=== PATIENT | male | born 1940 | race Caucasian/White ===

== ENCOUNTER 2018-08-30 14:37 | Inpatient (IN) | payer OTHER, BC ==
[2018-08-30] MEDS: SODIUM CHLORIDE 1,000 ML IV SCH (14:54)
--- NOTE | 2018-08-30 15:09 | PDOC ---
Attending Attestation - HPI HPI: 08/30/18 15:19 The patient is a 77 year old male, with a significant PMH of hypertension, hyperlipidemia, diabetes mellitus, who presents to the emergency department with aphasia, right sided weakness and right sided facial droop beginning 1 hour ago (approx 1:30 pm). As per EMS, the patient was last seen normal one hour ago while eating lunch and shortly after began behaving less responsive with notable right sided weakness/ facial droop. Patient seen immediately upon arrival by Dr Guthrie and ED staff. Allergies: NKDA Documentation prepared by Juan Luis Manning, acting as medical clerical assistant for Kamron Guthrie MD. <Juan Luis Manning - Last Filed: 08/30/18 15:19> - Resident Resident Name: Zachariah Headley - ED Attending Attestation I have performed the following: I have examined & evaluated the patient, The case was reviewed & discussed with the resident, I agree w/resident's findings & plan, Exceptions are as noted - Physicial Exam PE: 09/01/18 00:40 Vitals: Triage Vital signs reviewed General Appearance: no acute distress, well nourished well developed, Head: Atraumatic, Eyes: Pupils equal reactive round, extraocular movement intact Cardiac: Regular rate and rhythym, no murmurs, no rubs, no gallops, Lungs: Clear to auscultation bilateral, good air movement bilaterally, Abdomen: Soft, non distended, normal bowel sounds, non tender to palpation Extremities: Full range of motion to all extremities, no cyanosis, clubbing, or edema Skin: Warm and dry, no rashes or lesions, no rash, no petechiae Neuro:Cranial Nerves 2-12 grossly intact, Strength intact to all extremities, Sensation intact to all extremities Psych: normal mood, normal affect - Critical Care Time Total Critical Care Time: 36 Critical Care Statement: The care of this patient involved high complexity decision making to prevent further life threatening deterioration of the patient 's condition and/or to evaluate & treat vital organ system(s) failure or risk of failure. - Medical Decision Making 08/30/18 15:31 Patient brought into the emergency department with acute onset right-sided hemiparesis and aphasia and right-sided facial droop upon EMS arrival patient unable to lift his right arm right leg with right-sided facial droop with persistent aphasia fingerstick done in the field was [address] for stat CT had and CTA Upon return to room patient now with no facial droop, able to lift both arms and both legs still with a receptive and expressive aphasia still with difficulty following commands At this time NIHSS 2/3 difficult to quantify 2/2 inability to understand commands Case discussed twice with Dr. Clark neurology not a candidate for TPA or transfer at this time Recommends full dose aspirin MRI carotid Dopplers will consult Reevaluation patient still with difficulty with hypertension and speaking but moving all extremities We'll admit to medicine on telemetry for further management and neurology consultation. <Kamron Guthrie - Last Filed: 09/01/18 00:42> NIH Stroke Scale - Initial Evaluation Level of consciousness: Alert Ask patient to open & close eyes; make fist and let go: Obeys both correctly Best gaze (horizontal eye movement): Normal Visual field testing: No visual field loss Facial paresis (Show teeth/raise eyebrows/close eyes tight): Normal symmetrical movement Motor Function: Left Arm: Normal Motor Function: Right Arm: Normal (extends arm 90 (or 45) degrees for 10 seconds without drift Motor Function: Left Leg: Normal (extends leg 30 degrees for 5 seconds without drift) Motor Function: Right Leg: Normal (extends leg 30 degrees for 5 seconds without drift) Limb Ataxia: No ataxia Sensory(Use pinprick test arms,legs,trunk,face/side to side): Normal Best language (Describe picture, name items, read sentences): Mild to moderate aphasia Dysarthria (read several words): Mild to moderate slurring of words Extinction and Inattention: No abnormality <Kamron Guthrie - Last Filed: 09/01/18 00:42>
[2018-08-30 15:13] LABS: BASO % 0.5 % (0-2.0); EOS % 2.4 % (0-4.5); HEMATOCRIT 43.9 % (35.4-49); HEMOGLOBIN 15.5 GM/dL (11.7-16.9); LYMPH % 28.7 % (8-40); MCH 35.1 pg (25.7-33.7); MCHC 35.3 g/dl (32.0-35.9); MEAN CELL VOLUME 99.5 fl (80-96); MEAN PLT VOLUME 7.9 fl (7.5-11.1); MONO % 13.2 % (3.8-10.2); NEUT % 55.2 % (42.8-82.8); PLATELET COUNT 183 K/MM3 (134-434); RBC 4.41 M/mm3 (4.00-5.60); RDW 13.5 % (11.9-15.9); WHITE BLOOD COUNT 7.1 K/mm3 (4.0-10.0)
--- NOTE | 2018-08-30 15:20 | PDOC ---
History of Present Illness - General Chief Complaint: CVA/TIA Stated Complaint: CVA/TIA Time Seen by Provider: 08/30/18 14:38 History Source: Patient, Family, Old Records Exam Limitations: No Limitations - History of Present Illness Initial Comments: HPI: 77 y/o male BIBEMS from home with altered mental status with right sided facial drooping, right arm weakness, and right leg weakness. Symptoms started spontaneously while pt was eating lunch with approx. one hour prior to arrival. Speech is nonsensical words (per family). Pt has no prior history of CVA/TIA. Denies observing seizure like activity. Pt was in normal state of health prior to this afternoon. Pt is Malaysian speaking only. Family members at bedside provided interpretation. PCP: Dr. Richardson Past History - Past Medical History Allergies/Adverse Reactions: Allergies Allergy/AdvReac Type Severity Reaction Status Date / Time No Known Drug Allergies Allergy Verified 08/30/18 14:39 Home Medications: Ambulatory Orders Atorvastatin Calcium [Lipitor] 20 mg PO HS 08/13/12 Febuxostat [Uloric -] 40 mg PO DAILY 08/13/12 Metoprolol Tartrate [Lopressor -] 50 mg PO DAILY 08/13/12 Ramipril [Altace] 2.5 mg PO DAILY 08/13/12 Triamterene/Hydrochlorothiazid [Triamterene-Hctz 37.5-25 mg Tb] 1 each PO DAILY 08/13/12 Glipizide [Glipizide ER] 5 mg PO DAILY 08/30/18 Metformin HCl [Glucophage] 500 mg PO BID 08/30/18 Anemia: No Asthma: No Cardiac Disorders: Yes (NE x2, stents) COPD: No Diabetes: Yes HTN: Yes Hypercholesterolemia: Yes Kidney Stones: Yes - Surgical History Abdominal Surgery: No Appendectomy: Yes Cardiac Surgery: (stents) Orthopedic Surgery: No - Immunization History Td Vaccination: No (never has had one/doesnt want one) - Suicide/Smoking/Psychosocial Hx Smoking Status: No Smoking History: Never smoked Have you smoked in the past 12 months: No Number of Cigarettes Smoked Daily: 0 Information on smoking cessation initiated: No Hx Alcohol Use: No Drug/Substance Use Hx: No Substance Use Type: Alcohol Review of Systems - Review of Systems Able to Perform ROS?: No (Pt condition) *Physical Exam - Vital Signs Last Vital Signs Temp Pulse Resp BP Pulse Ox 97.3 F L 58 L 18 137/72 100 08/30/18 15:00 08/30/18 15:00 08/30/18 15:00 08/30/18 15:00 08/30/18 15:00 - Physical Exam Comments: Constitutional: Elderly adult male. Found semi-fowlers on hospital bed. Alert but completely disoriented. Unable to answer questions and would only intermittently follow commands. Speech was non-labored but mildly slurred. Head: Normocephalic. No obvious external signs of trauma. Eyes: Pupils 3mm and PERRL bilaterally. EOMI. Sclerae white. Conjunctiva moist and not injected. Ears: Hearing grossly intact. Nose: No nasal discharge. Throat: Oral cavity and pharynx normal. No inflammation, swelling, exudate, or lesions. Neck: Supple, trachea is midline. Cardiovascular / Chest: Regular rate and regular rhythm. No murmur, rubs, clicks, or gallops. Peripheral pulses: radial pulses full. Respiratory: Breathing unlabored. Equal chest rise and fall. Clear to auscultation bilaterally. No stridor, no wheezing, no rhonchi. Gastrointestinal: abdomen is soft, non-tender, non-distended. No pulsatile masses. No overlying skin lesions or obvious signs of trauma. Neuro: Alert but disoriented. Moving all four extremities spontaneously without obvious favoring or neglect. Unable to assess cranial nerves. Would not smile or grimace. No upper or lower extremity drift. Unable to perform cerebellar function testing. Skin: Warm, dry, and intact. No obvious signs of trauma. Psych: Affect: appropriate. Mood: unknown. Moderate Sedation - Procedure Monitoring Vital Signs: Procedure Monitoring Vital Signs Temperature 97.3 F L 08/30/18 15:00 Pulse Rate 58 L 08/30/18 15:00 Respiratory Rate 18 08/30/18 15:00 Blood Pressure 137/72 08/30/18 15:00 O2 Sat by Pulse Oximetry (%) 100 08/30/18 15:00 ED Treatment Course - LABORATORY CBC & Chemistry Diagram: 08/30/18 14:38 08/30/18 14:59 - ADDITIONAL ORDERS Additional order review: Laboratory Results 08/30/18 15:06 POC Glucometer 160 08/30/18 15:06 POC Glucometer 160 Medical Decision Making - Medical Decision Making *Reviewed vital signs, nursing notes, and prior visit documentation (if available). 77 y/o male presenting with sudden onset of disorientation, aphasia, and right sided hemiparesis. Right sided facial drooping noted on EMS stretcher. Code du activated. Pt sent directly to CT for CT and CTA. After returning to department, full exam was performed which revealed improving symptoms. NIH Stroke Scale performed at this time (results included below); limited by pts inability / refusal to follow all commands. CT of head revealed mild to moderate atrophy without acute intracranial pathology. CTA of head no evidence of hemodynamically significant stenosis, major artery cutoff, aneurysm, or vascular malformation. As symptoms are resolving, pt is not considered TPA candidate. ED Attending consulted with neurology service, who requested full dose ASA administration. Will evaluate pt in the morning. NIH Stroke Scale/Score (NIHSS) RESULT SUMMARY: 6 points NIH Stroke Scale INPUTS: 1A: Level of consciousness > 0 = Alert; keenly responsive 1B: Ask month and age > 2 = 0 questions right 1C: 'Blink eyes' & 'squeeze hands' > 1 = Performs 1 task 2: Horizontal extraocular movements > 0 = Normal 3: Visual elmore > 0 = No visual loss 4: Facial palsy > 0 = Normal symmetry 5A: Left arm motor drift > 0 = No drift for 10 seconds 5B: Right arm motor drift > 0 = No drift for 10 seconds 6A: Left leg motor drift > 0 = No drift for 5 seconds 6B: Right leg motor drift > 0 = No drift for 5 seconds 7: Limb Ataxia > 0 = Does not understand 8: Sensation > 0 = Normal; no sensory loss 9: Language/aphasia > 3 = Mute/global aphasia: no usable speech/auditory comprehension 10: Dysarthria > 0 = Normal 11: Extinction/inattention > 0 = No abnormality BGL within normal limits. CBC unremarkable for anemia. CMP unremarkable for severe electrolyte derangement. EtOH level negative. Troponin negative. Continue to suspect resolving CVA/TIA. 16:[address] Greco. Verbally appraised of the pts HPI, ED course, and current plan of management. Will admit pt to stroke floor on inpatient status. No additional orders requested. *DC/Admit/Observation/Transfer Diagnosis at time of Disposition: TIA (transient ischemic attack) Altered mental status Qualifiers: Altered mental status type: disorientation Qualified Code(s): R41.0 - Disorientation, unspecified - Discharge Dispostion Condition at time of disposition: Stable Decision to Admit order: Yes - Referrals - Patient Instructions - Post Discharge Activity
[2018-08-30 15:23] LABS: INR 0.97 (0.83-1.09); PROTHROMBIN TIME (PATIENT) 11.4 SEC (9.7-13.0)
[2018-08-30 15:43] LABS: ALBUMIN 3.3 g/dl (3.4-5.0); ALK PHOS 43 U/L (45-117); ANION GAP 11 MMOL/L (8-16); BILIRUBIN,TOTAL 1.1 mg/dL (0.2-1); BLOOD UREA NITROGEN 21 mg/dL (7-18); CALCIUM 8.4 mg/dL (8.5-10.1); CHLORIDE 94 mmol/L (98-107); CHOLESTEROL 95 mg/dL (50-200); CO2 27 mmol/L (21-32); CREATININE 1.1 mg/dL (0.55-1.3); GLUCOSE,RANDOM 170 mg/dL (74-106); HDL CHOLESTEROL 31 mg/dL (40-60); POTASSIUM 3.3 mmol/L (3.5-5.1); SGOT/AST 17 U/L (15-37); SGPT/ALT 26 U/L (13-61); SODIUM 132 mmol/L (136-145); TOT PROT 5.8 g/dl (6.4-8.2); TRIGLYCERIDES 138 mg/dL (0-150)
[2018-08-30] MEDS ORDERED: KCL 10 MEQ IVPB 30 MEQ/300 ML INFUS.BAG IVPB ONE (16:13)
[2018-08-30] MEDS: KCL 10 MEQ IVPB 10 MEQ/100 ML INFUS.BAG IVPB SCH ×3 (16:14→21:09)
[2018-08-30] MEDS ORDERED: ATORVASTATIN CA 10 MG TABLET (FP) PO ONE (16:52)
--- NOTE | 2018-08-30 16:53 | HP ---
Admitting History and Physical - Primary Care Physician PCP: Marlen Richardson - Admission Chief Complaint: came in for aphasia History of Present Illness: The patient is a 77 year old male, with a significant PMH of hypertension, hyperlipidemia, diabetes mellitus, who presents to the emergency department with aphasia, right sided weakness and right sided facial droop beginning 1 hour ago (approx 1:30 pm). As per EMS, the patient was last seen normal one hour ago while eating lunch and shortly after began behaving less responsive with notable right sided weakness/ facial droop. noticed after lunch he was not verbally responding and called 911 in ER his symptoms started to resolve but he still has mumblled speech History Source: Family Member, Medical Record - Past Medical History Cardiovascular: Yes: CAD, HTN, Hyperlipdemia Endocrine: Yes: Diabetes Mellitus - Past Surgical History Past Surgical History: Yes: Hernia Repair - Smoking History Smoking history: Never smoked Have you smoked in the past 12 months: No Aproximately how many cigarettes per day: 0 - Alcohol/Substance Use Hx Alcohol Use: No Home Medications - Allergies Allergies/Adverse Reactions: Allergies Allergy/AdvReac Type Severity Reaction Status Date / Time No Known Drug Allergies Allergy Verified 08/30/18 14:39 - Home Medications Home Medications: Ambulatory Orders Atorvastatin Calcium [Lipitor] 20 mg PO HS 08/13/12 Febuxostat [Uloric -] 40 mg PO DAILY 08/13/12 Metoprolol Tartrate [Lopressor -] 50 mg PO DAILY 08/13/12 Ramipril [Altace] 2.5 mg PO DAILY 08/13/12 Triamterene/Hydrochlorothiazid [Triamterene-Hctz 37.5-25 mg Tb] 1 each PO DAILY 08/13/12 Glipizide [Glipizide ER] 5 mg PO DAILY 08/30/18 Metformin HCl [Glucophage] 500 mg PO BID 08/30/18 Review of Systems - Review of Systems Neurological: reports: Other (mubmled speech) Physical Examination Vital Signs: Vital Signs Temperature 98.0 F 08/30/18 15:09 Pulse Rate 63 08/30/18 16:22 Respiratory Rate 16 08/30/18 16:22 Blood Pressure 122/68 08/30/18 16:22 O2 Sat by Pulse Oximetry (%) 95 08/30/18 16:22 Constitutional: Yes: Calm Cardiovascular: Yes: Regular Rate and Rhythm, S1, S2 Respiratory: Yes: CTA Bilaterally Gastrointestinal: Yes: Normal Bowel Sounds, Soft Edema: No Neurological: Yes: Alert, Oriented, Other (full rom ,motor strenght no facial droop sensation intact mumbled speech not making sense) Labs: CBC, BMP 08/30/18 14:38 08/30/18 14:59 Imaging - Results Cat Scan: Report Reviewed Problem List - Problems (1) TIA (transient ischemic attack) Assessment/Plan: neurocehck q6 hr telemetry neuro cardio echo mri brain carotid doppler patient drank a glass of water and was able to swallow no choking no coughing dvt ppx recheck potassium Code(s): G45.9 - TRANSIENT CEREBRAL ISCHEMIC ATTACK, UNSPECIFIED (2) Diabetes Assessment/Plan: [id number].bgm sliding scale Code(s): E11.9 - TYPE 2 DIABETES MELLITUS WITHOUT COMPLICATIONS Qualifiers: Diabetes mellitus type: type 2 (3) HTN (hypertension) Assessment/Plan: ramipril hold hctz given low sodium and potassium Code(s): I10 - ESSENTIAL (PRIMARY) HYPERTENSION (4) HLD (hyperlipidemia) Assessment/Plan: lipid profile statin Code(s): E78.5 - HYPERLIPIDEMIA, UNSPECIFIED
[2018-08-30] MEDS ORDERED: ASPIRIN 81 MG CHEWABLE TABLETS PO ONE (16:58)
[2018-08-30] MEDS ORDERED: ASPIRIN 81 MG CHEWABLE TABLETS ONE (17:06)
--- NOTE | 2018-08-30 20:32 | EKG ---
Test Reason : Blood Pressure : / mmHG Vent. Rate : 061 BPM Atrial Rate : 061 BPM P-R Int : 218 ms QRS Dur : 090 ms QT Int : 424 ms P-R-T Axes : 046 011 057 degrees QTc Int : 426 ms SINUS RHYTHM WITH 1ST DEGREE A-V BLOCK LOW VOLTAGE QRS SEPTAL INFARCT (CITED ON OR BEFORE 03-SEP-2003) ABNORMAL ECG WHEN COMPARED WITH ECG OF 16-MAY-2010 17:10, [place] INTERVAL HAS INCREASED Confirmed by ZACHARY LOCKHART, EMMANUELLE ([id number]) on 08/30/2018 8:31:54 PM Referred By: Confirmed By:EMMANUELLE SHARMA MD
[2018-08-30 20:45] VITALS: BMI 31.6
[2018-08-30] MEDS: HEPARIN NA (PORCINE) 5,000 UNITS/ML 1ML VIAL SQ SCH (21:09)
[2018-08-30] MEDS: ATORVASTATIN CA 10 MG TABLET (FP) PO SCH (21:10)
[2018-08-30] MEDS: INSULIN SLIDING SCALE (NOVOLOG) 1 VIAL SQ SCH (21:14)
[2018-08-31 06:53] LABS: BASO % 0.2 % (0-2.0); EOS % 1.3 % (0-4.5); HEMATOCRIT 43.5 % (35.4-49); HEMOGLOBIN 15.5 GM/dL (11.7-16.9); LYMPH % 22.8 % (8-40); MCH 35.9 pg (25.7-33.7); MCHC 35.6 g/dl (32.0-35.9); MEAN CELL VOLUME 100.7 fl (80-96); MONO % 10.8 % (3.8-10.2); NEUT % 64.9 % (42.8-82.8); PLATELET COUNT 153 K/MM3 (134-434); RBC 4.32 M/mm3 (4.00-5.60); RDW 13.8 % (11.9-15.9); WHITE BLOOD COUNT 7.3 K/mm3 (4.0-10.0)
[2018-08-31 07:09] LABS: INR 0.97 (0.83-1.09); PROTHROMBIN TIME (PATIENT) 11.5 SEC (9.7-13.0)
[2018-08-31 07:11] LABS: ACTIVATED PTT 28.4 SECONDS (25.2-36.5)
[2018-08-31 07:27] LABS: ALBUMIN 3.2 g/dl (3.4-5.0); ALK PHOS 42 U/L (45-117); ANION GAP 9 MMOL/L (8-16); BILIRUBIN,TOTAL 1.4 mg/dL (0.2-1); BLOOD UREA NITROGEN 18 mg/dL (7-18); CALCIUM 8.1 mg/dL (8.5-10.1); CHLORIDE 100 mmol/L (98-107); CHOLESTEROL 103 mg/dL (50-200); CO2 27 mmol/L (21-32); GLUCOSE,RANDOM 148 mg/dL (74-106); HDL CHOLESTEROL 33 mg/dL (40-60); MAGNESIUM 1.8 mg/dL (1.8-2.4); N-TERMINAL BNP 151.7 pg/ml (5-450); POTASSIUM 3.6 mmol/L (3.5-5.1); SGOT/AST 13 U/L (15-37); SGPT/ALT 25 U/L (13-61); SODIUM 136 mmol/L (136-145); TOT PROT 5.8 g/dl (6.4-8.2); TRIGLYCERIDES 150 mg/dL (0-150)
[2018-08-31] MEDS: INSULIN SLIDING SCALE (NOVOLOG) 1 VIAL SQ SCH ×4 (07:31→21:07)
--- NOTE | 2018-08-31 08:32 | PN ---
Progress Note, Physician Chief Complaint: events and notes reviewed awake alert x 2 memeroy loos acute/confusion - Current Medication List Current Medications: Active Medications Atorvastatin Calcium (Lipitor -) 10 mg PO HS [facility] Last Admin: 08/30/18 21:10 Dose: 10 mg Heparin Sodium (Porcine) (Heparin -) 5,000 unit SQ BID [facility] Last Admin: 08/30/18 21:09 Dose: 5,000 unit Sodium Chloride (Normal Saline -) 1,000 mls @ 42 mls/hr IV ASDIR [facility] Last Admin: 08/30/18 14:54 Dose: 42 mls/hr Insulin Aspart (Novolog Vial Sliding Scale -) 1 vial SQ ACHS [facility]; Protocol Last Admin: 08/31/18 07:31 Dose: Not Given Ramipril (Altace -) 2.5 mg PO DAILY [facility] - Objective Vital Signs: Vital Signs Temperature 98.2 F 08/31/18 07:00 Pulse Rate 65 08/31/18 07:00 Respiratory Rate 18 08/31/18 07:00 Blood Pressure 140/75 08/31/18 07:00 O2 Sat by Pulse Oximetry (%) 96 08/31/18 05:00 Constitutional: Yes: Mild Distress Eyes: Yes: WNL HENT: Yes: WNL Neck: Yes: WNL Cardiovascular: Yes: Regular Rate and Rhythm Respiratory: Yes: WNL Gastrointestinal: Yes: WNL Genitourinary: Yes: WNL Musculoskeletal: Yes: Muscle Weakness Extremities: Yes: WNL Edema: No Peripheral Pulses WNL: Yes Integumentary: Yes: WNL Wound/Incision: Yes: Clean/Dry Neurological: Yes: Aphasia, Confusion, Dysarthria, Weakness ...Motor Strength: LUE, LLE, RUE, RLE Psychiatric: Yes: Other Labs: CBC, BMP 08/31/18 06:15 08/31/18 06:15 INR, PTT INR 0.97 (0.83-1.09) 08/31/18 06:15 Problem List - Problems (1) Altered mental status Code(s): R41.82 - ALTERED MENTAL STATUS, UNSPECIFIED Qualifiers: Altered mental status type: disorientation Qualified Code(s): R41.0 - Disorientation, unspecified (2) Diabetes Code(s): E11.9 - TYPE 2 DIABETES MELLITUS WITHOUT COMPLICATIONS Qualifiers: Diabetes mellitus type: type 2 (3) HLD (hyperlipidemia) Code(s): E78.5 - HYPERLIPIDEMIA, UNSPECIFIED (4) HTN (hypertension) Code(s): I10 - ESSENTIAL (PRIMARY) HYPERTENSION (5) TIA (transient ischemic attack) Code(s): G45.9 - TRANSIENT CEREBRAL ISCHEMIC ATTACK, UNSPECIFIED Assessment/Plan CARDIOLOGY F/U TO OBTAIN CARDIAC STENT INFO PRIOR TO MRI BRAIN NEURO EVAL NEURO CHECKS FALL RISKS SWALLOW EVAL LIPID PANEL A1C MONITOR LABS ECHO/CAROTID DOPPLER
[2018-08-31] MEDS: RAMIPRIL 2.5 MG CAPSULE (FP) PO SCH (10:01)
[2018-08-31] MEDS: HEPARIN NA (PORCINE) 5,000 UNITS/ML 1ML VIAL SQ SCH ×2 (10:01→21:07)
--- NOTE | 2018-08-31 10:32 | CONSULT ---
Consult - text type - Consultation Consultation Note: Neurology Chief Complaint: came in for aphasia History of Present Illness: The patient is a 77 year old male, with a significant PMH of hypertension, hyperlipidemia, diabetes mellitus, who presents to the emergency department with aphasia, right sided weakness and right sided facial droop beginning 1 hour prior to arrival to ER on day of admission (approx 1:30 pm). As per EMS, the patient was last seen normal one hour prior while eating lunch and shortly after, began behaving less responsive with notable right sided weakness/ facial droop. noticed after lunch he was not verbally responding and called 911. After arrival to ER, his symptoms started to resolve but he still had mumbled speech in ER. I was contact by capri Centeno. With rapid improvement of symptoms, TPA was not given. THis AM, with aphasia improving this is improving. 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 CTA completed and no focal stenosis or cutoff. Patient takes ASA at home 81mg, discussed with them that I would recommend adding plavix for dual antiplatelet because of his risk factors and for future CVA prevention. Cardiology consulted, needs eval for Afib and echo as CVA suspicious for embolic phenomenon. On Statin, and LDL 53, within normal limits. - Past Medical History Cardiovascular: Yes: CAD, HTN, Hyperlipdemia Endocrine: Yes: Diabetes Mellitus - Past Surgical History Past Surgical History: Yes: Hernia Repair - Smoking History Smoking history: Never smoked Have you smoked in the past 12 months: No Aproximately how many cigarettes per day: 0 - Alcohol/Substance Use Hx Alcohol Use: No Home Medications - Allergies Allergies/Adverse Reactions: Allergies Allergy/AdvReac Type Severity Reaction Status Date / Time No Known Drug Allergies Allergy Verified 08/30/18 14:39 - Home Medications Home Medications: Ambulatory Orders Atorvastatin Calcium [Lipitor] 20 mg PO HS 08/13/12 Febuxostat [Uloric -] 40 mg PO DAILY 08/13/12 Metoprolol Tartrate [Lopressor -] 50 mg PO DAILY 08/13/12 Ramipril [Altace] 2.5 mg PO DAILY 08/13/12 Triamterene/Hydrochlorothiazid [Triamterene-Hctz 37.5-25 mg Tb] 1 each PO DAILY 08/13/12 Glipizide [Glipizide ER] 5 mg PO DAILY 08/30/18 Metformin HCl [Glucophage] 500 mg PO BID 08/30/18 Review of Systems - Review of Systems Neurological: reports: Other (mubmled speech) Physical Examination Vital Signs Temperature 98.2 F 08/31/18 07:00 Pulse Rate 65 08/31/18 07:00 Respiratory Rate 18 08/31/18 07:00 Blood Pressure 140/75 08/31/18 07:00 O2 Sat by Pulse Oximetry (%) 96 08/31/18 05:00 Constitutional: Yes: Calm Cardiovascular: Yes: Regular Rate and Rhythm, S1, S2 Respiratory: Yes: CTA Bilaterally Gastrointestinal: Yes: Normal Bowel Sounds, Soft Edema: No Neurological: Yes: Alert, aphasia noted, moves B/l UE and LE equally, limited confrontation testing, sensory intact, finger to nose normal Labs: CBCD WBC 7.3 K/mm3 (4.0-10.0) 08/31/18 06:15 RBC 4.32 M/mm3 (4.00-5.60) 08/31/18 06:15 Hgb 15.5 GM/dL (11.7-16.9) 08/31/18 06:15 Hct 43.5 % (35.4-49) 08/31/18 06:15 MCV 100.7 fl (80-96) H 08/31/18 06:15 MCHC 35.6 g/dl (32.0-35.9) 08/31/18 06:15 RDW 13.8 % (11.9-15.9) 08/31/18 06:15 Plt Count 153 K/MM3 (134-434) 08/31/18 06:15 MPV 8.0 fl (7.5-11.1) 08/31/18 06:15 CMP Sodium 136 mmol/L (136-145) 08/31/18 06:15 Potassium 3.6 mmol/L (3.5-5.1) 08/31/18 06:15 Chloride 100 mmol/L (98-107) 08/31/18 06:15 Carbon Dioxide 27 mmol/L (21-32) 08/31/18 06:15 Anion Gap 9 MMOL/L (8-16) 08/31/18 06:15 BUN 18 mg/dL (7-18) 08/31/18 06:15 Creatinine 1.0 mg/dL (0.55-1.3) 08/31/18 06:15 Creat Clearance w eGFR > 60 (>60) 08/31/18 06:15 Random Glucose 148 mg/dL (74-106) H 08/31/18 06:15 Calcium 8.1 mg/dL (8.5-10.1) L 08/31/18 06:15 Total Bilirubin 1.4 mg/dL (0.2-1) H 08/31/18 06:15 AST 13 U/L (15-37) L 08/31/18 06:15 ALT 25 U/L (13-61) 08/31/18 06:15 Alkaline Phosphatase 42 U/L (45-117) L 08/31/18 06:15 Total Protein 5.8 g/dl (6.4-8.2) L 08/31/18 06:15 Albumin 3.2 g/dl (3.4-5.0) L 08/31/18 06:15 CARDIAC ENZYMES Creatine Kinase 111 U/L (26-308) 08/31/18 06:15 Troponin I 0.02 ng/ml (0.00-0.05) 08/31/18 06:15 Diagnostics: Head CT - completed Head CTA - completed, Carotid Doppler - completed Brain MRI - completed Plan/Assessment The patient is a 77 year old male, with a significant PMH of hypertension, hyperlipidemia, diabetes mellitus, who presents to the emergency department with aphasia, right sided weakness and right sided facial droop beginning 1 hour prior to arrival to ER on day of admission (approx 1:30 pm). As per EMS, the patient was last seen normal one hour prior while eating lunch and shortly after, began behaving less responsive with notable right sided weakness/ facial droop. noticed after lunch he was not verbally responding and called 911. After arrival to ER, his symptoms started to resolve but he still had mumbled speech in ER. I was contact by capri Centeno. With rapid improvement of symptoms, TPA was not given. THis AM, with aphasia improving this is improving. 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 Patient takes ASA at home 81mg, discussed with them that I would recommend adding plavix for dual antiplatelet because of his risk factors and for future CVA prevention. Cardiology consulted , needs eval for Afib and echo as CVA suspicious for embolic phenomenon. On Statin, and LDL 53, within normal limits. Speech/swallow eval, DVT ppx. Can allow bp up to 160/90 for now.
--- NOTE | 2018-08-31 12:54 | EKG ---
Test Reason : Blood Pressure : / mmHG Vent. Rate : 071 BPM Atrial Rate : 071 BPM P-R Int : 180 ms QRS Dur : 082 ms QT Int : 394 ms P-R-T Axes : 033 -03 025 degrees QTc Int : 428 ms NORMAL SINUS RHYTHM ANTEROSEPTAL INFARCT (CITED ON OR BEFORE 03-SEP-2003) ABNORMAL ECG WHEN COMPARED WITH ECG OF 30-AUG-2018 15:01, [place] INTERVAL HAS DECREASED Confirmed by LULA BLACKWOOD MD ([id number]) on 08/31/2018 12:54:05 PM Referred By: Varun ALVARADO Confirmed By:LULA BLACKWOOD MD
[2018-08-31] MEDS: CLOPIDOGREL BISULFATE 75 MG TABLET (FP) PO SCH (13:04)
[2018-08-31] MEDS: SODIUM CHLORIDE 1,000 ML IV SCH (17:16)
--- NOTE | 2018-08-31 19:54 | CON.CARD ---
Consult Consult Specialty:: Cardiology Reason for Consultation:: CVA - History of Present Illness Chief Complaint: Right sided weakness History of Present Illness: This is a 77 year old malke with a PMH of hypertension, hyperlipidemia, diabetes mellitus, and CAD. He has had 2 remote MA's and has had past coronary stents according ti the family. He presents now with a right sided weakness and aphasia. 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 - Past Medical History Cardio/Vascular: Yes: CAD, HTN, Hyperlipdemia Endocrine: Yes: Diabetes Mellitus - Past Surgical History Past Surgical History: Yes: Hernia Repair - Alcohol/Substance Use Hx Alcohol Use: Yes - Smoking History Smoking history: Never smoked Have you smoked in the past 12 months: No Aproximately how many cigarettes per day: 0 Home Medications - Allergies Allergies/Adverse Reactions: Allergies Allergy/AdvReac Type Severity Reaction Status Date / Time No Known Drug Allergies Allergy Verified 08/30/18 14:39 - Home Medications Home Medications: Ambulatory Orders Atorvastatin Calcium [Lipitor] 20 mg PO HS 08/13/12 Febuxostat [Uloric -] 40 mg PO DAILY 08/13/12 Metoprolol Tartrate [Lopressor -] 50 mg PO DAILY 08/13/12 Ramipril [Altace] 2.5 mg PO DAILY 08/13/12 Triamterene/Hydrochlorothiazid [Triamterene-Hctz 37.5-25 mg Tb] 1 each PO DAILY 08/13/12 Glipizide [Glipizide ER] 5 mg PO DAILY 08/30/18 Metformin HCl [Glucophage] 500 mg PO BID 08/30/18 Vital Signs: Vital Signs Temperature 98.7 F 08/31/18 16:40 Pulse Rate 71 08/31/18 16:40 Respiratory Rate 18 08/31/18 16:40 Blood Pressure 125/77 08/31/18 16:40 O2 Sat by Pulse Oximetry (%) 87 L 08/31/18 10:00 Constitutional: Yes: Well Nourished, No Distress Respiratory: Yes: CTA Bilaterally Gastrointestinal: Yes: Normal Bowel Sounds Cardiovascular: Yes: Regular Rate and Rhythm (NL S1S2) Extremities: Yes: WNL Neurological: Yes: Alert, Oriented (Right sided weakness) - Other Data Labs, Other Data: CBC, BMP 08/31/18 06:15 08/31/18 06:15 INR, PTT INR 0.97 (0.83-1.09) 08/31/18 06:15 Troponin, BNP 08/31/18 06:15 Troponin I 0.02 B-Natriuretic Peptide 151.7 Troponin, BNP 08/31/18 06:15 Troponin I 0.02 B-Natriuretic Peptide 151.7 Assessment/Plan 77 year old malke with a PMH of hypertension, hyperlipidemia, diabetes mellitus , and CAD. He has had 2 remote MA's and has had past coronary stents according ti the family. He presents now with a right sided weakness and aphasia. 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 CVA Suspicious for cardioembolic Presently in NSR Agree with Plavix/Atorvastatin/Ramipril Obtain an echocardiogram Need to look for occult afib Would obtain a 24 hour Holter If Holter is negative, would consider a LINQ implant (Implantable Loop Recorder) , This monitors for about 3 years. Upon discharge can be set up for the [facility].
[2018-08-31] MEDS: ATORVASTATIN CA 10 MG TABLET (FP) PO SCH (21:07)
[2018-09-01] MEDS: INSULIN SLIDING SCALE (NOVOLOG) 1 VIAL SQ SCH ×4 (06:33→21:19)
--- NOTE | 2018-09-01 09:19 | PN ---
Progress Note, Physician Chief Complaint: AWAKE ALERT WALKING THE FLOORS NO ACUTE EVENTS OVERNIGHT - Current Medication List Current Medications: Active Medications Atorvastatin Calcium (Lipitor -) 10 mg PO HS [facility] Last Admin: 08/31/18 21:07 Dose: 10 mg Clopidogrel Bisulfate (Plavix -) 75 mg PO DAILY [facility] Last Admin: 08/31/18 13:04 Dose: 75 mg Heparin Sodium (Porcine) (Heparin -) 5,000 unit SQ BID [facility] Last Admin: 08/31/18 21:07 Dose: 5,000 unit Insulin Aspart (Novolog Vial Sliding Scale -) 1 vial SQ ACHS [facility]; Protocol Last Admin: 09/01/18 06:33 Dose: Not Given Ramipril (Altace -) 2.5 mg PO DAILY [facility] Last Admin: 08/31/18 10:01 Dose: 2.5 mg - Objective Vital Signs: Vital Signs Temperature 98.9 F 09/01/18 05:56 Pulse Rate 70 09/01/18 05:56 Respiratory Rate 20 09/01/18 05:56 Blood Pressure 141/52 L 09/01/18 05:56 O2 Sat by Pulse Oximetry (%) 95 08/31/18 20:10 Constitutional: Yes: No Distress, Calm Eyes: Yes: WNL HENT: Yes: WNL Neck: Yes: WNL Cardiovascular: Yes: Regular Rate and Rhythm Respiratory: Yes: WNL Gastrointestinal: Yes: WNL Genitourinary: Yes: WNL Musculoskeletal: Yes: WNL Extremities: Yes: WNL Edema: No Integumentary: Yes: WNL Wound/Incision: Yes: Clean/Dry Neurological: Yes: Aphasia ...Motor Strength: WNL Psychiatric: Yes: WNL Labs: CBC, BMP 08/31/18 06:15 08/31/18 06:15 INR, PTT INR 0.97 (0.83-1.09) 08/31/18 06:15 Problem List - Problems (1) Altered mental status Code(s): R41.82 - ALTERED MENTAL STATUS, UNSPECIFIED Qualifiers: Altered mental status type: disorientation Qualified Code(s): R41.0 - Disorientation, unspecified (2) Diabetes Code(s): E11.9 - TYPE 2 DIABETES MELLITUS WITHOUT COMPLICATIONS Qualifiers: Diabetes mellitus type: type 2 (3) HLD (hyperlipidemia) Code(s): E78.5 - HYPERLIPIDEMIA, UNSPECIFIED (4) HTN (hypertension) Code(s): I10 - ESSENTIAL (PRIMARY) HYPERTENSION (5) TIA (transient ischemic attack) Code(s): G45.9 - TRANSIENT CEREBRAL ISCHEMIC ATTACK, UNSPECIFIED Assessment/Plan ECHO TO EVALUATE EF% AND RULE OUT VALVULAR VEGETATIONS ON STATIN/ASA/PLAVIX/PAT- PT EVAL SPEECH EVAL TOLERATING SOFT DIET AGREE WITH CARDIOLOGY ABOUT ARRHYTHMIA W/UP NEURO CHECKS AND F/U
[2018-09-01] MEDS: CLOPIDOGREL BISULFATE 75 MG TABLET (FP) PO SCH (09:53)
[2018-09-01] MEDS: HEPARIN NA (PORCINE) 5,000 UNITS/ML 1ML VIAL SQ SCH ×2 (09:53→21:18)
[2018-09-01] MEDS: RAMIPRIL 2.5 MG CAPSULE (FP) PO SCH (09:53)
--- NOTE | 2018-09-01 10:53 | PN ---
Progress Note (short form) - Note Progress Note: Neurology Chief Complaint: Aphasia History of Present Illness: The patient is a 77 year old male, with a significant PMH of hypertension, hyperlipidemia, diabetes mellitus, who presented to the emergency department with aphasia, right sided weakness and right sided facial droop beginning 1 hour prior to arrival to ER on day of admission (approx 1:30 pm). As per EMS, the patient was last seen normal one hour prior while eating lunch and shortly after, began behaving less responsive with notable right sided weakness/ facial droop. noticed after lunch he was not verbally responding and called 911. After arrival to ER, his symptoms started to resolve but he still had mumbled speech in ER. I was contact by Dr. Guthrie, capri du. With rapid improvement of symptoms, TPA was not given. Morning of 08/31/18, with aphasia improving this is improving. 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 CTA completed and no focal stenosis or cutoff. Patient takes ASA at home 81mg, discussed with them that I would recommend adding plavix for dual antiplatelet because of his risk factors and for future CVA prevention. Cardiology consulted, needs eval for Afib and echo as CVA suspicious for embolic phenomenon. On Statin, and LDL 53, within normal limits. Cardiology note reviewed, agreed with plavix. Extensive conversation with entire family at bedside, answered all questions, including regarding prognosis of speech and benefits of therapy. They seemed to be appreciative of insights. Awaiting Echo, planned for tomorrow. Allergies Allergy/AdvReac Type Severity Reaction Status Date / Time No Known Drug Allergies Allergy Verified 08/30/18 14:39 Active Medications Atorvastatin Calcium (Lipitor -) 10 mg PO HS [facility] Last Admin: 08/31/18 21:07 Dose: 10 mg Clopidogrel Bisulfate (Plavix -) 75 mg PO DAILY [facility] Last Admin: 09/01/18 09:53 Dose: 75 mg Glipizide (Glucotrol -) 5 mg PO DAILY@0700 [facility] Heparin Sodium (Porcine) (Heparin -) 5,000 unit SQ BID [facility] Last Admin: 09/01/18 09:53 Dose: 5,000 unit Insulin Aspart (Novolog Vial Sliding Scale -) 1 vial SQ ACHS [facility]; Protocol Last Admin: 09/01/18 06:33 Dose: Not Given Metformin HCl (Glucophage -) 500 mg PO BID@0700,1630 [facility] Ramipril (Altace -) 2.5 mg PO DAILY [facility] Last Admin: 09/01/18 09:53 Dose: 2.5 mg Physical Examination Vital Signs Temperature 98.8 F 09/01/18 09:44 Pulse Rate 67 09/01/18 09:44 Respiratory Rate 16 09/01/18 09:44 Blood Pressure 149/72 09/01/18 09:44 O2 Sat by Pulse Oximetry (%) 95 08/31/18 20:10 Constitutional: Yes: Calm Cardiovascular: Yes: Regular Rate and Rhythm, S1, S2 Respiratory: Yes: CTA Bilaterally Gastrointestinal: Yes: Normal Bowel Sounds, Soft Edema: No Neurological: Yes: Alert, aphasia noted, moves B/l UE and LE equally, limited confrontation testing, sensory intact, finger to nose normal Labs: CBCD WBC 7.3 K/mm3 (4.0-10.0) 08/31/18 06:15 RBC 4.32 M/mm3 (4.00-5.60) 08/31/18 06:15 Hgb 15.5 GM/dL (11.7-16.9) 08/31/18 06:15 Hct 43.5 % (35.4-49) 08/31/18 06:15 MCV 100.7 fl (80-96) H 08/31/18 06:15 MCHC 35.6 g/dl (32.0-35.9) 08/31/18 06:15 RDW 13.8 % (11.9-15.9) 08/31/18 06:15 Plt Count 153 K/MM3 (134-434) 08/31/18 06:15 MPV 8.0 fl (7.5-11.1) 08/31/18 06:15 CMP Sodium 136 mmol/L (136-145) 08/31/18 06:15 Potassium 3.6 mmol/L (3.5-5.1) 08/31/18 06:15 Chloride 100 mmol/L (98-107) 08/31/18 06:15 Carbon Dioxide 27 mmol/L (21-32) 08/31/18 06:15 Anion Gap 9 MMOL/L (8-16) 08/31/18 06:15 BUN 18 mg/dL (7-18) 08/31/18 06:15 Creatinine 1.0 mg/dL (0.55-1.3) 08/31/18 06:15 Creat Clearance w eGFR > 60 (>60) 08/31/18 06:15 Random Glucose 148 mg/dL (74-106) H 08/31/18 06:15 Calcium 8.1 mg/dL (8.5-10.1) L 08/31/18 06:15 Total Bilirubin 1.4 mg/dL (0.2-1) H 08/31/18 06:15 AST 13 U/L (15-37) L 08/31/18 06:15 ALT 25 U/L (13-61) 08/31/18 06:15 Alkaline Phosphatase 42 U/L (45-117) L 08/31/18 06:15 Total Protein 5.8 g/dl (6.4-8.2) L 08/31/18 06:15 Albumin 3.2 g/dl (3.4-5.0) L 08/31/18 06:15 CARDIAC ENZYMES Creatine Kinase 111 U/L (26-308) 08/31/18 06:15 Troponin I 0.02 ng/ml (0.00-0.05) 08/31/18 06:15 Diagnostics: Head CT - completed Head CTA - completed, Carotid Doppler - completed Brain MRI - completed Plan/Assessment The patient is a 77 year old male, with a significant PMH of hypertension, hyperlipidemia, diabetes mellitus, who presented to the emergency department with aphasia, right sided weakness and right sided facial droop beginning 1 hour prior to arrival to ER on day of admission (approx 1:30 pm). As per EMS, the patient was last seen normal one hour prior while eating lunch and shortly after, began behaving less responsive with notable right sided weakness/ facial droop. noticed after lunch he was not verbally responding and called 911. After arrival to ER, his symptoms started to resolve but he still had mumbled speech in ER. I was contact by capri Centeno. With rapid improvement of symptoms, TPA was not given. Morning of 08/31/18, with aphasia improving this is improving. 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 Patient takes ASA at home 81mg, discussed with them that I would recommend adding plavix for dual antiplatelet because of his risk factors and for future CVA prevention. CUrrently on just plavix, would prefer dual antiplatelet regiement. Call sent out to cards to confirm this is acceptable to them. Cardiology consulted for further eval for Afib and echo as CVA suspicious for embolic phenomenon. On Statin, and LDL 53, within normal limits. Extensive conversation with entire family at bedside, answered all questions, including regarding prognosis of speech and benefits of therapy. Encouraged verbalization and vocalization. They seemed to be appreciative of insights. Awaiting Echo, planned for tomorrow. Speech/swallow eval, DVT ppx. Can allow bp up to 140/80 for now.
[2018-09-01] MEDS: ASPIRIN 81 MG CHEWABLE TABLETS PO SCH (14:36)
[2018-09-01] MEDS: metFORMIN HCL 500 MG TABLET (FP) PO SCH (16:51)
--- NOTE | 2018-09-01 17:02 | PN ---
Progress Note, Physician Chief Complaint: Presently comfortable History of Present Illness: This is a 77 year old malke with a PMH of hypertension, hyperlipidemia, diabetes mellitus, and CAD. He has had 2 remote MA's and has had past coronary stents according ti the family. He presents now with a right sided weakness and aphasia. 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 - Current Medication List Current Medications: Active Medications Aspirin (Asa -) 81 mg PO DAILY [facility] Last Admin: 09/01/18 14:36 Dose: Not Given Atorvastatin Calcium (Lipitor -) 10 mg PO HS [facility] Last Admin: 08/31/18 21:07 Dose: 10 mg Clopidogrel Bisulfate (Plavix -) 75 mg PO DAILY [facility] Last Admin: 09/01/18 09:53 Dose: 75 mg Glipizide (Glucotrol -) 5 mg PO DAILY@0700 [facility] Heparin Sodium (Porcine) (Heparin -) 5,000 unit SQ BID [facility] Last Admin: 09/01/18 09:53 Dose: 5,000 unit Insulin Aspart (Novolog Vial Sliding Scale -) 1 vial SQ [facility]; Protocol Last Admin: 09/01/18 16:51 Dose: 2 units Metformin HCl (Glucophage -) 500 mg PO BID@0700,1630 [facility] Last Admin: 09/01/18 16:51 Dose: 500 mg Ramipril (Altace -) 2.5 mg PO DAILY [facility] Last Admin: 09/01/18 09:53 Dose: 2.5 mg - Objective Vital Signs: Vital Signs Temperature 99.3 F 09/01/18 14:10 Pulse Rate 69 09/01/18 14:10 Respiratory Rate 16 09/01/18 14:10 Blood Pressure 111/55 L 09/01/18 14:10 O2 Sat by Pulse Oximetry (%) 95 09/01/18 09:00 Constitutional: Yes: Well Nourished HENT: Yes: WNL Neck: Yes: WNL Cardiovascular: Yes: Regular Rate and Rhythm (NL S1S2 no [facility]) Respiratory: Yes: CTA Bilaterally Gastrointestinal: Yes: Normal Bowel Sounds Extremities: Yes: WNL Edema: No Neurological: Yes: Alert, Oriented (Residual right sided weakness) Labs: CBC, BMP 08/31/18 06:15 08/31/18 06:15 INR, PTT INR 0.97 (0.83-1.09) 08/31/18 06:15 Assessment/Plan 77 year old malke with a PMH of hypertension, hyperlipidemia, diabetes mellitus , and CAD. He has had 2 remote MA's and has had past coronary stents according ti the family. He presents now with a right sided weakness and aphasia. 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 CVA Suspicious for cardioembolic Presently in NSR Agree with ASA/Plavix/Atorvastatin/Ramipril Obtain an echocardiogram Need to look for occult afib Holter is in place If Holter is negative, would consider a LINQ implant (Implantable Loop Recorder) , This monitors for about 3 years. Upon discharge can be set up for the [facility].
[2018-09-01] MEDS: ATORVASTATIN CA 10 MG TABLET (FP) PO SCH (21:18)
[2018-09-02] MEDS: ARTIFICIAL TEARS (POLYVINYL ALCOHOL) OPTH DROPS OU PRN (06:32)
[2018-09-02] MEDS: INSULIN SLIDING SCALE (NOVOLOG) 1 VIAL SQ SCH ×4 (06:32→21:39)
[2018-09-02] MEDS: glipiZIDE 5 MG TABLET (FP) PO SCH (06:32)
[2018-09-02] MEDS: metFORMIN HCL 500 MG TABLET (FP) PO SCH ×2 (06:32→16:43)
[2018-09-02] MEDS ORDERED: PT OWN MED DRAWER 7, Y5N ONE (06:35)
--- NOTE | 2018-09-02 08:28 | PN ---
Progress Note, Physician - Current Medication List Current Medications: Active Medications Artificial Tears (Artificial Tears) 1 drop OU Q6H PRN PRN Reason: DRY EYES Last Admin: 09/02/18 06:32 Dose: 1 drop Aspirin (Asa -) 81 mg PO DAILY [facility] Last Admin: 09/01/18 14:36 Dose: Not Given Atorvastatin Calcium (Lipitor -) 10 mg PO HS [facility] Last Admin: 09/01/18 21:18 Dose: 10 mg Clopidogrel Bisulfate (Plavix -) 75 mg PO DAILY [facility] Last Admin: 09/01/18 09:53 Dose: 75 mg Glipizide (Glucotrol -) 5 mg PO DAILY@0700 [facility] Last Admin: 09/02/18 06:32 Dose: 5 mg Heparin Sodium (Porcine) (Heparin -) 5,000 unit SQ BID [facility] Last Admin: 09/01/18 21:18 Dose: 5,000 unit Insulin Aspart (Novolog Vial Sliding Scale -) 1 vial SQ [facility]; Protocol Last Admin: 09/02/18 06:32 Dose: 2 units Metformin HCl (Glucophage -) 500 mg PO BID@0700,1630 [facility] Last Admin: 09/02/18 06:32 Dose: 500 mg Ramipril (Altace -) 2.5 mg PO DAILY [facility] Last Admin: 09/01/18 09:53 Dose: 2.5 mg - Objective Vital Signs: Vital Signs Temperature 98.3 F 09/02/18 06:00 Pulse Rate 78 09/02/18 06:00 Respiratory Rate 20 09/02/18 06:00 Blood Pressure 154/88 09/02/18 06:00 O2 Sat by Pulse Oximetry (%) 95 09/01/18 21:00 Cardiovascular: Yes: Regular Rate and Rhythm Respiratory: Yes: Regular, CTA Bilaterally Gastrointestinal: Yes: Normal Bowel Sounds, Soft Neurological: Yes: Alert, Aphasia Labs: CBC, BMP 08/31/18 06:15 08/31/18 06:15 INR, PTT INR 0.97 (0.83-1.09) 08/31/18 06:15 Problem List - Problems (1) CVA (cerebral vascular accident) Assessment/Plan: telemetry neuro noted cardio noted on asa/plavix/statin echo mri brain noted--acute cva Code(s): I63.9 - CEREBRAL INFARCTION, UNSPECIFIED (2) Diabetes Assessment/Plan: [id number].bgm sliding scale Code(s): E11.9 - TYPE 2 DIABETES MELLITUS WITHOUT COMPLICATIONS Qualifiers: Diabetes mellitus type: type 2 (3) HLD (hyperlipidemia) Assessment/Plan: lipid profile statin Code(s): E78.5 - HYPERLIPIDEMIA, UNSPECIFIED (4) HTN (hypertension) Assessment/Plan: ramipril hold hctz given low sodium and potassium Code(s): I10 - ESSENTIAL (PRIMARY) HYPERTENSION
[2018-09-02] MEDS: ASPIRIN 81 MG CHEWABLE TABLETS PO SCH (09:25)
[2018-09-02] MEDS: CLOPIDOGREL BISULFATE 75 MG TABLET (FP) PO SCH (09:25)
[2018-09-02] MEDS: HEPARIN NA (PORCINE) 5,000 UNITS/ML 1ML VIAL SQ SCH ×2 (09:26→21:35)
[2018-09-02] MEDS: RAMIPRIL 2.5 MG CAPSULE (FP) PO SCH (09:26)
--- NOTE | 2018-09-02 10:25 | CONSULT ---
Admitting History and Physical - Primary Care Physician PCP: Gifty Child - Admission History of Present Illness: 77 year old raquel with a PMH of hypertension, hyperlipidemia, diabetes mellitus , and CAD, ND's ,coronary stents admitted with right sided weakness and aphasia. Selected Entries 08/31/18 08/31/18 08/31/18 02:00 07:00 10:00 Breakfast Diet Tolerated Lunch Supper Temperature 98.2 F 98.2 F 98.0 F 08/31/18 08/31/18 08/31/18 11:19 14:47 16:40 Breakfast 100% Diet Tolerated Well Well Lunch 100% Supper Temperature 99.0 F 98.7 F 08/31/18 08/31/18 08/31/18 20:12 22:00 22:47 Breakfast Diet Tolerated Well Well Lunch Supper 100% Temperature 99.1 F 09/01/18 09/01/18 09/01/18 02:00 05:56 09:44 Breakfast Diet Tolerated Lunch Supper Temperature 99.1 F 98.9 F 98.8 F 09/01/18 09/01/18 09/01/18 10:57 14:10 16:50 Breakfast 75% Diet Tolerated Well Well Lunch 100% Supper Temperature 99.3 F 98.6 F 09/01/18 09/01/18 09/01/18 21:56 21:58 23:18 Breakfast Diet Tolerated Well Well Lunch 100% Supper Temperature 98.9 F 09/02/18 09/02/18 09/02/18 02:00 06:00 09:00 Breakfast Diet Tolerated Lunch Supper Temperature 99.0 F 98.3 F 98.6 F Laboratory Tests 08/31/18 06:15 WBC 7.3 Patient reported to eat meals with no difficulty swallowing. Patient ambulates in hallway accompanied by family most of the day. Extensive evaluation and therapy provided today with daughter serving as tube cleaning operator in [place]. Pt and family educated on Receptive/Expressive Aphasia and given drills to practice daily with pt. 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.Reading/writing limited but reported to be functl baseline History - Admission Reason For Visit: TRANSIENT ISCHEMIC ATTACK/ALTERED MENTAL STATUS - Diagnostics X-ray: Report Reviewed CT Scan: Report Reviewed MRI: Report Reviewed (Brain MRI 08/31/18 an acute left cerebral infarcts,L alford radiata and L insular cortex CVA, acute which are noted suggestive of an embolic etiology, per cardiology) Other: Report Reviewed ( CTA -no focal stenosis or cutoff.) - General Mental Status: Alert and Oriented, Awake and Alert Attention: Distractible, Mild Impairment Ability to Follow Directions: Poor Head/Neck Control: Good - Hearing Hearing: Normal Speech Evaluation - Communication Primary Language: KHMER Communication: Yes: Aphasia Oral Expression Ability: Yes: Moderate Impairment, Severe Impairment - Speech Production Able to Make Needs Known: Yes: Moderately Impaired, Severely Impaired Intelligibility: Yes: WNL - Speech Characteristics Voice Loudness: Normal Voice Pitch: Yes: Normal Voice Phonatory-based Quality: Yes: Normal Speech Pattern: Normal Speech Clarity: < 100% Nasal Resonance: Normal Articulation: Yes: Precise Rate of Speech: Intact - Language/Auditory Comprehension Observation: Able to respond to yes/no queries: No, Yes/No Confusion: Yes (yes for most questions), Benefits from Slow Speech: Yes, Benefits from Repetiton: Yes (add gesture) - Language/Verbal Expression Aphasia: Yes: Nonfluent, Anomia, Impaired Repetition, Apraxia Able to Respond to Simple Queries: Yes: Severely Impaired Able to Communicate Wants and Needs: Yes: Severely Impaired Functional Communication Status: Yes: Severely Impaired - Memory/Perception Short Term Memory: Yes: Mildly Impaired (suspected. Baseline memory deficits but functional.) - Swallow Evaluation/Bedside Assessment Current Nutritional Intake: Soft, Thin Liquids Oral Secretions: Yes: WFL Dentition: Yes: Adequate Facial Symmetry at Rest: Symmetrical Facial Symmetry on Retraction: Symmetrical Against Resistance Opening: Normal Against Resistance Closing: Normal Pucker Lips: Normal Smile: Normal Lingual Movement: Normal, Symmetric Lingual Speed of Movement: Normal Lingual Movement Strgth Against Opposition: Normal Lingual Movement Characteristics: Normal Velopharyngeal Movement: Normal Laryngeal Elevation: WFL Laryngeal Movement: Able to Palpate Rate of Intake: Impulsive (family reports he is eating ravenously, not his baseline.) Bolus Size: WFL Labial Seal: WFL Chewing: WFL Oral Prep Time: WFL A-P Transit: WFL Pocketing: None Timing of Swallow: WFL Coughing/Throat Clear: No Change in Voice: No Recommendations - Speech Evaluation, Impression/Plan Impression: 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 Unable to complete open ended phrases, associative pairs. Seems aware and frustrated when unable to express himself. Recommended Therapies: Language, Other (Intensive homecare speech/language therapy. Unable to drive to outpt facility.) - Disposition Discharge to: Home with Assist - Dysphagia Impressions/Plan Swallowing Skills: WFL Dysphagia Impressions: No Impairment *Silent aspiration: cannot be R/O at bedside - Recommendations Diet Consistency: Regular Medication Administration: Whole with water Liquids: Thin Liquids
[2018-09-02 13:39] LABS: ALBUMIN 3.6 g/dl (3.4-5.0); ALK PHOS 52 U/L (45-117); ANION GAP 8 MMOL/L (8-16); BILIRUBIN,TOTAL 1.2 mg/dL (0.2-1); BLOOD UREA NITROGEN 21 mg/dL (7-18); CALCIUM 8.7 mg/dL (8.5-10.1); CHLORIDE 101 mmol/L (98-107); CO2 28 mmol/L (21-32); CREATININE 1.2 mg/dL (0.55-1.3); GLUCOSE,RANDOM 115 mg/dL (74-106); POTASSIUM 3.6 mmol/L (3.5-5.1); SGOT/AST 28 U/L (15-37); SGPT/ALT 40 U/L (13-61); SODIUM 137 mmol/L (136-145); TOT PROT 6.6 g/dl (6.4-8.2)
--- NOTE | 2018-09-02 14:26 | PN ---
Progress Note, Physician Chief Complaint: No complaints today Sinus on tele History of Present Illness: 77 year old raquel with a PMH of hypertension, hyperlipidemia, diabetes mellitus , and CAD. He has had 2 remote CO's and has had past coronary stents according ti the family. He presents now with a right sided weakness and aphasia. 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 - Current Medication List Current Medications: Active Medications Artificial Tears (Artificial Tears) 1 drop OU Q6H PRN PRN Reason: DRY EYES Last Admin: 09/02/18 06:32 Dose: 1 drop Aspirin (Asa -) 81 mg PO DAILY [facility] Last Admin: 09/02/18 09:25 Dose: 81 mg Atorvastatin Calcium (Lipitor -) 10 mg PO HS [facility] Last Admin: 09/01/18 21:18 Dose: 10 mg Clopidogrel Bisulfate (Plavix -) 75 mg PO DAILY [facility] Last Admin: 09/02/18 09:25 Dose: 75 mg Glipizide (Glucotrol -) 5 mg PO DAILY@0700 [facility] Last Admin: 09/02/18 06:32 Dose: 5 mg Heparin Sodium (Porcine) (Heparin -) 5,000 unit SQ BID [facility] Last Admin: 09/02/18 09:26 Dose: 5,000 unit Insulin Aspart (Novolog Vial Sliding Scale -) 1 vial SQ ACHS [facility]; Protocol Last Admin: 09/02/18 12:34 Dose: Not Given Metformin HCl (Glucophage -) 500 mg PO BID@0700,1630 [facility] Last Admin: 09/02/18 06:32 Dose: 500 mg Ramipril (Altace -) 2.5 mg PO DAILY [facility] Last Admin: 09/02/18 09:26 Dose: 2.5 mg - Objective Vital Signs: Vital Signs Temperature 98.6 F 09/02/18 09:00 Pulse Rate 79 09/02/18 09:00 Respiratory Rate 20 09/02/18 09:00 Blood Pressure 147/79 09/02/18 09:00 O2 Sat by Pulse Oximetry (%) 95 09/01/18 21:00 Constitutional: Yes: No Distress Neck: Yes: Supple Cardiovascular: Yes: Regular Rate and Rhythm, S1, S2. No: Murmur Respiratory: Yes: CTA Bilaterally Gastrointestinal: Yes: Soft Edema: No Labs: CBC, BMP 08/31/18 06:15 09/02/18 12:00 INR, PTT INR 0.97 (0.83-1.09) 08/31/18 06:15 Assessment/Plan 77 year old malke with a PMH of hypertension, hyperlipidemia, diabetes mellitus , and CAD. He has had 2 remote CO's and has had past coronary stents according ti the family. He presents now with a right sided weakness and aphasia. 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 CVA Suspicious for cardioembolic Presently in NSR Agree with Plavix/Atorvastatin/Ramipril Carotid US with no stenosis Obtain an echocardiogram Need to look for occult afib Would obtain a 24 hour Holter If Holter is negative, would consider a LINQ implant (Implantable Loop Recorder) , This monitors for about 3 years. Upon discharge can be set up for the [facility]. Please contact Dr. Richardson's office. Patient's granddaughter says that he used to take a blood thinner she believes called ibeth and says Dr. Richardson stopped it a few months ago. Please clarify if this is accurate and if so why was on blood thinner.
[2018-09-02] MEDS: ATORVASTATIN CA 10 MG TABLET (FP) PO SCH (21:35)
[2018-09-03] MEDS: glipiZIDE 5 MG TABLET (FP) PO SCH (06:59)
[2018-09-03] MEDS: metFORMIN HCL 500 MG TABLET (FP) PO SCH ×2 (06:59→16:34)
--- NOTE | 2018-09-03 09:11 | PN ---
Progress Note, Physician - Current Medication List Current Medications: Active Medications Artificial Tears (Artificial Tears) 1 drop OU Q6H PRN PRN Reason: DRY EYES Last Admin: 09/02/18 06:32 Dose: 1 drop Aspirin (Asa -) 81 mg PO DAILY [facility] Last Admin: 09/02/18 09:25 Dose: 81 mg Atorvastatin Calcium (Lipitor -) 10 mg PO HS [facility] Last Admin: 09/02/18 21:35 Dose: 10 mg Clopidogrel Bisulfate (Plavix -) 75 mg PO DAILY [facility] Last Admin: 09/02/18 09:25 Dose: 75 mg Glipizide (Glucotrol -) 5 mg PO DAILY@0700 [facility] Last Admin: 09/03/18 06:59 Dose: 5 mg Heparin Sodium (Porcine) (Heparin -) 5,000 unit SQ BID [facility] Last Admin: 09/02/18 21:35 Dose: 5,000 unit Insulin Aspart (Novolog Vial Sliding Scale -) 1 vial SQ [facility]; Protocol Last Admin: 09/02/18 21:39 Dose: Not Given Metformin HCl (Glucophage -) 500 mg PO BID@0700,1630 [facility] Last Admin: 09/03/18 06:59 Dose: 500 mg Ramipril (Altace -) 2.5 mg PO DAILY [facility] Last Admin: 09/02/18 09:26 Dose: 2.5 mg - Objective Vital Signs: Vital Signs Temperature 97.8 F 09/03/18 07:28 Pulse Rate 64 09/03/18 07:28 Respiratory Rate 18 09/03/18 07:28 Blood Pressure 134/80 09/03/18 07:28 O2 Sat by Pulse Oximetry (%) 95 09/02/18 20:59 Cardiovascular: Yes: Regular Rate and Rhythm Respiratory: Yes: Regular, CTA Bilaterally Gastrointestinal: Yes: Normal Bowel Sounds, Soft Labs: CBC, BMP 08/31/18 06:15 09/02/18 12:00 INR, PTT INR 0.97 (0.83-1.09) 08/31/18 06:15 Problem List - Problems (1) CVA (cerebral vascular accident) Assessment/Plan: telemetry neuro noted cardio noted on asa/plavix/statin d/w cardio pt does not have h/o afib and was not on eliquis pts plavix was stopped after last cath in february mri brain noted--acute cva speach therapy Code(s): I63.9 - CEREBRAL INFARCTION, UNSPECIFIED (2) Diabetes Assessment/Plan: [id number].bgm sliding scale Code(s): E11.9 - TYPE 2 DIABETES MELLITUS WITHOUT COMPLICATIONS Qualifiers: Diabetes mellitus type: type 2 (3) HLD (hyperlipidemia) Assessment/Plan: lipid profile statin Code(s): E78.5 - HYPERLIPIDEMIA, UNSPECIFIED (4) HTN (hypertension) Assessment/Plan: ramipril hold hctz given low sodium and potassium Code(s): I10 - ESSENTIAL (PRIMARY) HYPERTENSION
--- NOTE | 2018-09-03 09:12 | PN ---
Progress Note (short form) - Note Progress Note: Neurology Chief Complaint: Aphasia History of Present Illness: The patient is a 77 year old male, with a significant PMH of hypertension, hyperlipidemia, diabetes mellitus, who presented to the emergency department with aphasia, right sided weakness and right sided facial droop beginning 1 hour prior to arrival to ER on day of admission (approx 1:30 pm). As per EMS, the patient was last seen normal one hour prior while eating lunch and shortly after, began behaving less responsive with notable right sided weakness/ facial droop. noticed after lunch he was not verbally responding and called 911. After arrival to ER, his symptoms started to resolve but he still had mumbled speech in ER. I was contact by Dr. Guthrie, capri du. With rapid improvement of symptoms, TPA was not given. Morning of 08/31/18, with aphasia improving this is improving. 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 CTA completed and no focal stenosis or cutoff. Patient takes ASA at home 81mg, discussed with them that I would recommend adding plavix for dual antiplatelet because of his risk factors and for future CVA prevention. Cardiology consulted, needs eval for Afib and echo as CVA suspicious for embolic phenomenon. On Statin, and LDL 53, within normal limits. Cardiology note reviewed, agreed with plavix. Remains on dual antiplatelet. Awaiting Echo, planned for today. Conversed with Dr. Richardson today at bedside, would benefit from speech therapy. No new clinical deficits. Allergies Allergy/AdvReac Type Severity Reaction Status Date / Time No Known Drug Allergies Allergy Verified 08/30/18 14:39 Active Medications Artificial Tears (Artificial Tears) 1 drop OU Q6H PRN PRN Reason: DRY EYES Last Admin: 09/02/18 06:32 Dose: 1 drop Aspirin (Asa -) 81 mg PO DAILY [facility] Last Admin: 09/02/18 09:25 Dose: 81 mg Atorvastatin Calcium (Lipitor -) 10 mg PO HS [facility] Last Admin: 09/02/18 21:35 Dose: 10 mg Clopidogrel Bisulfate (Plavix -) 75 mg PO DAILY [facility] Last Admin: 09/02/18 09:25 Dose: 75 mg Glipizide (Glucotrol -) 5 mg PO DAILY@0700 [facility] Last Admin: 09/03/18 06:59 Dose: 5 mg Heparin Sodium (Porcine) (Heparin -) 5,000 unit SQ BID [facility] Last Admin: 09/02/18 21:35 Dose: 5,000 unit Insulin Aspart (Novolog Vial Sliding Scale -) 1 vial SQ ACHS [facility]; Protocol Last Admin: 09/02/18 21:39 Dose: Not Given Metformin HCl (Glucophage -) 500 mg PO BID@0700,1630 [facility] Last Admin: 09/03/18 06:59 Dose: 500 mg Ramipril (Altace -) 2.5 mg PO DAILY [facility] Last Admin: 09/02/18 09:26 Dose: 2.5 mg Physical Examination Vital Signs Period Temp Pulse Resp BP Sys/Agee Pulse Ox Last 24 Hr 97.8 F-99.4 F 59-85 18-20 124-145/57-80 95 Constitutional: Yes: Calm Cardiovascular: Yes: Regular Rate and Rhythm, S1, S2 Respiratory: Yes: CTA Bilaterally Gastrointestinal: Yes: Normal Bowel Sounds, Soft Edema: No Neurological: Yes: Alert, aphasia noted, moves B/l UE and LE equally, limited confrontation testing, sensory intact, finger to nose normal Labs: CBCD WBC 7.3 K/mm3 (4.0-10.0) 08/31/18 06:15 RBC 4.32 M/mm3 (4.00-5.60) 08/31/18 06:15 Hgb 15.5 GM/dL (11.7-16.9) 08/31/18 06:15 Hct 43.5 % (35.4-49) 08/31/18 06:15 MCV 100.7 fl (80-96) H 08/31/18 06:15 MCHC 35.6 g/dl (32.0-35.9) 08/31/18 06:15 RDW 13.8 % (11.9-15.9) 08/31/18 06:15 Plt Count 153 K/MM3 (134-434) 08/31/18 06:15 MPV 8.0 fl (7.5-11.1) 08/31/18 06:15 CMP Sodium 137 mmol/L (136-145) 09/02/18 12:00 Potassium 3.6 mmol/L (3.5-5.1) 09/02/18 12:00 Chloride 101 mmol/L (98-107) 09/02/18 12:00 Carbon Dioxide 28 mmol/L (21-32) 09/02/18 12:00 Anion Gap 8 MMOL/L (8-16) 09/02/18 12:00 BUN 21 mg/dL (7-18) H 09/02/18 12:00 Creatinine 1.2 mg/dL (0.55-1.3) 09/02/18 12:00 Creat Clearance w eGFR 58.71 (>60) 09/02/18 12:00 Calcium 8.7 mg/dL (8.5-10.1) 09/02/18 12:00 Total Bilirubin 1.2 mg/dL (0.2-1) H 09/02/18 12:00 AST 28 U/L (15-37) 09/02/18 12:00 ALT 40 U/L (13-61) 09/02/18 12:00 Alkaline Phosphatase 52 U/L (45-117) 09/02/18 12:00 Total Protein 6.6 g/dl (6.4-8.2) 09/02/18 12:00 Albumin 3.6 g/dl (3.4-5.0) 09/02/18 12:00 Diagnostics: Head CT - completed Head CTA - completed, Carotid Doppler - completed Brain MRI - completed Plan/Assessment The patient is a 77 year old male, with a significant PMH of hypertension, hyperlipidemia, diabetes mellitus, who presented to the emergency department with aphasia, right sided weakness and right sided facial droop beginning 1 hour prior to arrival to ER on day of admission (approx 1:30 pm). As per EMS, the patient was last seen normal one hour prior while eating lunch and shortly after, began behaving less responsive with notable right sided weakness/ facial droop. noticed after lunch he was not verbally responding and called 911. After arrival to ER, his symptoms started to resolve but he still had mumbled speech in ER. I was contact by capri Centeno. With rapid improvement of symptoms, TPA was not given. Morning of 08/31/18, with aphasia improving this is improving. 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 Patient takes ASA at home 81mg, discussed with them that I would recommend adding plavix for dual antiplatelet because of his risk factors and for future CVA prevention. CUrrently on just plavix, would prefer dual antiplatelet regiement. Call sent out to cards to confirm this is acceptable to them. Cardiology consulted for further eval for Afib and echo as CVA suspicious for embolic phenomenon. On Statin, and LDL 53, within normal limits. Remains on dual antiplatelet. Awaiting Echo, planned for today. Conversed with Dr. Richardson today at bedside, would benefit from speech therapy. No new clinical deficits. Encouraged verbalization and vocalization to patient, no family at bedside today.
--- NOTE | 2018-09-03 09:35 | PN ---
Progress Note, Physician Chief Complaint: The patient was sitting comfortably at the time of exam. He reports no palpitation, dizziness, chest pain or SOB. Tele shows sinus rhythm with mild sinus bradycardia and occasional single VPCs. History of Present Illness: 77 year old man with a PMHx of hypertension, hyperlipidemia, diabetes mellitus, and CAD. He has had 2 remote NH's and has had past coronary stents according ti the family admitted with a right sided weakness and aphasia. Brain MRI 08/31/18 showed an acute left cerebral infarcts are noted suggestive of an embolic etiology. 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 No evidence of atrial fibrillation or flutter noted since admission. - Current Medication List Current Medications: Active Medications Artificial Tears (Artificial Tears) 1 drop OU Q6H PRN PRN Reason: DRY EYES Last Admin: 09/02/18 06:32 Dose: 1 drop Aspirin (Asa -) 81 mg PO DAILY [facility] Last Admin: 09/02/18 09:25 Dose: 81 mg Atorvastatin Calcium (Lipitor -) 10 mg PO HS [facility] Last Admin: 09/02/18 21:35 Dose: 10 mg Clopidogrel Bisulfate (Plavix -) 75 mg PO DAILY [facility] Last Admin: 09/02/18 09:25 Dose: 75 mg Glipizide (Glucotrol -) 5 mg PO DAILY@0700 [facility] Last Admin: 09/03/18 06:59 Dose: 5 mg Heparin Sodium (Porcine) (Heparin -) 5,000 unit SQ BID [facility] Last Admin: 09/02/18 21:35 Dose: 5,000 unit Insulin Aspart (Novolog Vial Sliding Scale -) [address] [facility]; Protocol Last Admin: 09/02/18 21:39 Dose: Not Given Metformin HCl (Glucophage -) 500 mg PO BID@0700,1630 [facility] Last Admin: 09/03/18 06:59 Dose: 500 mg Ramipril (Altace -) 2.5 mg PO DAILY [facility] Last Admin: 09/02/18 09:26 Dose: 2.5 mg - Objective Vital Signs: Vital Signs Temperature 97.8 F 09/03/18 07:28 Pulse Rate 64 09/03/18 07:28 Respiratory Rate 18 09/03/18 07:28 Blood Pressure 134/80 09/03/18 07:28 O2 Sat by Pulse Oximetry (%) 95 09/02/18 20:59 General: Well developed. Well nourished. No acute distress. Head: Normocephalic. Atraumatic, Eyes: PERRLA, EOMI. Sclerae anicteric. Conjunctivae clear. Neck: Supple. No JVD. No bruits. Heart: Normal S1, S2: Regular rhythm and rate. No murmur. No gallop or rub. Lungs: Symmetrical air entry. Clear to auscultation. No crackles. No wheezing or rhonchi. Abdomen: Soft. Bowel sound positive. Non tender. No masses. Extremities: No edema. No clubbing or cyanosis. PD 2+, equal bilaterally. Neuro: Intact, no focal findings. AAO X3. Labs: CBC, BMP 08/31/18 06:15 09/02/18 12:00 INR, PTT INR 0.97 (0.83-1.09) 08/31/18 06:15 Assessment/Plan 77 year old man with a PMHx of hypertension, hyperlipidemia, diabetes mellitus, and CAD. He has had 2 remote NH's and has had past coronary stents according ti the family admitted with a right sided weakness and aphasia. Brain MRI 08/31/18 showed an acute left cerebral infarcts are noted suggestive of an embolic etiology. 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 No evidence of atrial fibrillation or flutter noted since admission. CVA Suspicious for cardioembolic Presently in NSR. No evidence of atrial fibrillation or flutter noted since admission. 1) Agree with Plavix/Atorvastatin/Ramipril 2) Carotid US with no stenosis 3) Obtain an echocardiogram 4) Need to look for occult afib: Would obtain a 24 hour Holter If Holter is negative, would consider a LINQ implant (Implantable Loop Recorder) , This monitors for about 3 years. Upon discharge can be set up for the [facility]. Please contact Dr. Richardson's office. Patient's granddaughter says that he used to take a blood thinner she believes called ibeth and says Dr. Richardson stopped it a few months ago. He might have a history of pafib. Please clarify if this is accurate and if so why was on blood thinner. We will follow with you!
[2018-09-03] MEDS: INSULIN SLIDING SCALE (NOVOLOG) 1 VIAL SQ SCH ×4 (10:24→21:29)
[2018-09-03] MEDS: CLOPIDOGREL BISULFATE 75 MG TABLET (FP) PO SCH (10:48)
[2018-09-03] MEDS: ARTIFICIAL TEARS (POLYVINYL ALCOHOL) OPTH DROPS OU PRN (10:48)
[2018-09-03] MEDS: RAMIPRIL 2.5 MG CAPSULE (FP) PO SCH (10:48)
[2018-09-03] MEDS: HEPARIN NA (PORCINE) 5,000 UNITS/ML 1ML VIAL SQ SCH ×2 (10:48→21:29)
[2018-09-03] MEDS: ASPIRIN 81 MG CHEWABLE TABLETS PO SCH (10:48)
--- NOTE | 2018-09-03 12:18 | PN ---
Progress Note, COURT ORDERLY - Note Progress Note: Significant improvement in language function, speaking in short sentences, improving word retrieval intermittently in conversation and upon confrontation. Functional communication is now at a fair level. Pt will still benefit from continued speech therapy upon d/c.
--- NOTE | 2018-09-03 13:41 | CONS ---
DATE OF CONSULTATION: 09/03/2018 PHYSICAL MEDICINE REHABILITATION CONSULTATION REFERRING PHYSICIAN: Marlen Richardson MD HISTORY OF PRESENT ILLNESS: The patient is a 77-year-old man who was admitted with difficulty with his speech and right-sided weakness. Patient has a history of diabetes, hypertension, hyperlipidemia, but was functioning well until 2:15, when he developed right-sided weakness, facial droop, and difficulty with his speech. On admission, patient underwent CT of the head, which did not show any acute intracranial pathology. There was some mild to moderate atrophy. Because his condition was improving, he was not a candidate for TPA despite being admitted within the time frame window CTA, and carotid Doppler showed no high-grade stenosis. MRI on August 31 confirmed multiple acute left cerebral infarcts including non- hemorrhagic infarcts in the left frontal alford radiata, left frontal cortex. Patient was seen by Neurology and is on subcutaneous heparin as well as Plavix with baby aspirin. He has also been evaluated by Speech Pathology. He has no complaints of pain, but continues to have difficulty with his speech. He denies any difficulty swallowing or chewing, and speech pathology recommended a regular consistency diet with thin liquids. Patients blood work has been stable. CBC as of August 31 showed WBC 7.3, hemoglobin 15.5, platelet count 153. INR 0.97. Chemistry last done on September 02 was stable, BUN 21 slightly elevated, normal creatinine 1.2, sodium 137, potassium 3.6, chloride 101, CO2 at 28, albumin 3.6. Patient reports no pain. He is up and ambulatory with assistance and was able to ambulate 150 feet with a [id number] contact guard and then supervision , able to go up and down stairs with a handrail without any loss of balance. REVIEW OF PAST MEDICAL AND SURGICAL HISTORY: As above. SOCIAL HISTORY: He lives with family in a private house. There is a full flight of stairs to get in. Then, he can stay on one level. Premorbidly completely independent. Current function as above. REVIEW OF SYSTEMS: No headache. No lightheadedness or dizziness. No blurry vision, double vision, or change in vision. No nausea, vomiting, difficulty swallowing , or difficulty chewing. Again, he does have speech problems, particularly with word finding, but no difficulty following commands. No chest pain or shortness of breath. He still complains of a little right-sided weakness, and possibly some numbness on the right side, but no numbness, tingling or weakness in the left upper and left lower limb. He has no complaints of any neck pain, back pain, joint arthralgias , fever, chills, weight loss, weight gain, or bowel/bladder incontinence. PHYSICAL EXAMINATION: General: On examination, slightly overweight man seen lying in bed. He is in no acute distress. HEENT: He is normocephalic and atraumatic. His extraocular muscles appear full. He has no obvious facial weakness. No oral ulcers. Neck: Supple. Extremities: Without any pitting edema or calf tenderness. Skin: Without any rash or breakdown. Neuromuscular: He is awake, alert, and can follow directions, but has difficulty with repeating as well as with his speech. He mainly answers yes/no, and is slightly frustrated. Cranial nerves 2-12, however, appear grossly intact. He may have some slight weakness of the right upper extremity and durability technician and shoulder girdle, both at 4-4+/5, but 5/5 strength in the left upper extremity and bilateral lower extremities. Normal sensation to pinprick. Reflexes are fairly symmetric. He has some arthritic changes in the hands, but they are not limiting and good joint stability, good standing balance. OVERALL IMPRESSION: 1. Deficits mobility, activities of daily living, which are minimal at best. 2. Cerebrovascular accident with non-fluent aphasia and mild right-sided weakness particularly in the right upper limb. 3. Multiple acute left cerebrovascular accidents as documented above. 4. History of diabetes. 5. History of hypertension. 6. History of hypercholesterolemia. 7. Elevated risk for deep venous thrombosis. 8. Mildly elevated BUN. 9. Elevated risk for decubitus ulcers due to immobility. 10. Increased risk for constipation due to immobility. PLANS AND SUGGESTIONS: 1. Continue physical therapy including stair negotiation. 2. Out of bed to chair. 3. Ambulate on the unit with staff as appropriate. 4. Follow up with speech pathology. 5. Previous subcutaneous heparin for DVT prophylaxis. 6. Skin precautions. Avoid sacral heel pressure. Monitor for erythema and for breakdown. 7. Bowel regimen. Monitor for constipation. 8. Disposition: Probably home with outpatient speech therapy and possibly occupational therapy if he has any deficits in his ADLs. Thank you for this referral. KATELIN DEWEY M.D. SARATH/[id number] RIC
--- NOTE | 2018-09-03 15:50 | HOL ---
Hook-up date: 2018-09-01 13:14:00 Duration: 23:29:00 Test Indications: R/O OCCULT AFIB, DX CVA Medications: 40544 QRS complexes 901 Ventricular ectopics which represent <1 % of total QRS comp. 566 Supraventricular ectopics which represent <1 % of total QRS comp. * Paced QRS complexs which represent % of total QRS comp. * % of Time Classified as Noise VENTRICULAR ECTOPY 869 Isolated 0 Bigeminal Cycles 16 Couplets 0 Runs 0 Beats in Runs * Beats LONGEST at * BPM at :: -- * Beats FASTEST at * BPM at :: -- SUPRAVENTRICULAR ECTOPY 541 Isolated 11 Couplets 1 Runs 3 Beats in Runs 3 Beats LONGEST at 142 BPM at 13:37:38 2018-09-01 3 Beats FASTEST at 142 BPM at 13:37:38 2018-09-01 HEART RATES 49 MIN at 22:41:10 2018-09-01 69 AVG 104 MAX at 07:37:06 2018-09-02 LONGEST RR 1.552 secs at 04:42:54 2018-09-02 SCANNED BY: HOMERO 09/03/18 Holter duration 23:29 hours Sinus rhythm with HR range 49 to 104 Average HR 69bpm Occasional PVC's (869) with few couplets Occasional PAC"s (541) with few couplets No significant pauses with longest R-R interval 1.55seconds Confirmed by MD Luz Marina, Lester ([id number]) on 09/03/2018 3:50:14 PM Referred By: Varun HERNANDEZ Overread By: Lester Raza MD
[2018-09-03] MEDS: ATORVASTATIN CA 10 MG TABLET (FP) PO SCH (21:29)
[2018-09-04] MEDS: metFORMIN HCL 500 MG TABLET (FP) PO SCH ×2 (06:15→17:14)
[2018-09-04] MEDS: glipiZIDE 5 MG TABLET (FP) PO SCH (06:15)
[2018-09-04] MEDS: INSULIN SLIDING SCALE (NOVOLOG) 1 VIAL SQ SCH ×4 (06:15→21:06)
--- NOTE | 2018-09-04 09:19 | PN ---
Progress Note (short form) - Note Progress Note: Neurology Chief Complaint: Aphasia History of Present Illness: The patient is a 77 year old male, with a significant PMH of hypertension, hyperlipidemia, diabetes mellitus, who presented to the emergency department with aphasia, right sided weakness and right sided facial droop beginning 1 hour prior to arrival to ER on day of admission (approx 1:30 pm). As per EMS, the patient was last seen normal one hour prior while eating lunch and shortly after, began behaving less responsive with notable right sided weakness/ facial droop. noticed after lunch he was not verbally responding and called 911. After arrival to ER, his symptoms started to resolve but he still had mumbled speech in ER. I was contact by Dr. Guthrie, capri du. With rapid improvement of symptoms, TPA was not given. Morning of 08/31/18, with aphasia improving this is improving. 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 CTA completed and no focal stenosis or cutoff. Patient takes ASA at home 81mg, discussed with them that I would recommend adding plavix for dual antiplatelet because of his risk factors and for future CVA prevention. Cardiology consulted, needs eval for Afib and echo as CVA suspicious for embolic phenomenon. On Statin, and LDL 53, within normal limits. Cardiology note reviewed, agreed with plavix. Remains on dual antiplatelet. Awaiting Echo,still pending. Conversed with daughter today at bedside, They are interested in outpatient therapy possibly at home which she said she discussed with Dr. Richardson. Speech improving as he was verbalizing numbers on dialpad on wall in Nepalese. Continued verbalization recommended. Reiterated need to be on dual antiplatelet. No new neurologic complaints. Speech /swallow note reviewed. Dr. Bañuelos note reviewed. Allergies Allergy/AdvReac Type Severity Reaction Status Date / Time No Known Drug Allergies Allergy Verified 08/30/18 14:39 Active Medications Artificial Tears (Artificial Tears) 1 drop OU Q6H PRN PRN Reason: DRY EYES Last Admin: 09/03/18 10:48 Dose: 1 drop Aspirin (Asa -) 81 mg PO DAILY [facility] Last Admin: 09/03/18 10:48 Dose: 81 mg Atorvastatin Calcium (Lipitor -) 10 mg PO HS [facility] Last Admin: 09/03/18 21:29 Dose: 10 mg Clopidogrel Bisulfate (Plavix -) 75 mg PO DAILY [facility] Last Admin: 09/03/18 10:48 Dose: 75 mg Glipizide (Glucotrol -) 5 mg PO DAILY@0700 [facility] Last Admin: 09/04/18 06:15 Dose: 5 mg Heparin Sodium (Porcine) (Heparin -) 5,000 unit SQ BID [facility] Last Admin: 09/03/18 21:29 Dose: 5,000 unit Insulin Aspart (Novolog Vial Sliding Scale -) 1 vial SQ ACHS [facility]; Protocol Last Admin: 09/04/18 06:15 Dose: 2 units Metformin HCl (Glucophage -) 500 mg PO BID@0700,1630 [facility] Last Admin: 09/04/18 06:15 Dose: 500 mg Ramipril (Altace -) 2.5 mg PO DAILY [facility] Last Admin: 09/03/18 10:48 Dose: 2.5 mg Physical Examination Vital Signs Period Temp Pulse Resp BP Sys/Agee Pulse Ox Last 24 Hr 97 F-98.9 F 69-79 16-20 132-147/70-99 95-97 Constitutional: Yes: Calm Cardiovascular: Yes: Regular Rate and Rhythm, S1, S2 Respiratory: Yes: CTA Bilaterally Gastrointestinal: Yes: Normal Bowel Sounds, Soft Edema: No Neurological: Yes: Alert, aphasia noted, moves B/l UE and LE equally, limited confrontation testing, sensory intact, finger to nose normal Labs: CBCD WBC 7.3 K/mm3 (4.0-10.0) 08/31/18 06:15 RBC 4.32 M/mm3 (4.00-5.60) 08/31/18 06:15 Hgb 15.5 GM/dL (11.7-16.9) 08/31/18 06:15 Hct 43.5 % (35.4-49) 08/31/18 06:15 MCV 100.7 fl (80-96) H 08/31/18 06:15 MCHC 35.6 g/dl (32.0-35.9) 08/31/18 06:15 RDW 13.8 % (11.9-15.9) 08/31/18 06:15 Plt Count 153 K/MM3 (134-434) 08/31/18 06:15 MPV 8.0 fl (7.5-11.1) 08/31/18 06:15 CMP Sodium 137 mmol/L (136-145) 09/02/18 12:00 Potassium 3.6 mmol/L (3.5-5.1) 09/02/18 12:00 Chloride 101 mmol/L (98-107) 09/02/18 12:00 Carbon Dioxide 28 mmol/L (21-32) 09/02/18 12:00 Anion Gap 8 MMOL/L (8-16) 09/02/18 12:00 BUN 21 mg/dL (7-18) H 09/02/18 12:00 Creatinine 1.2 mg/dL (0.55-1.3) 09/02/18 12:00 Creat Clearance w eGFR 58.71 (>60) 09/02/18 12:00 Random Glucose 115 mg/dL (74-106) H 09/02/18 12:00 Calcium 8.7 mg/dL (8.5-10.1) 09/02/18 12:00 Total Bilirubin 1.2 mg/dL (0.2-1) H 09/02/18 12:00 AST 28 U/L (15-37) 09/02/18 12:00 ALT 40 U/L (13-61) 09/02/18 12:00 Alkaline Phosphatase 52 U/L (45-117) 09/02/18 12:00 Total Protein 6.6 g/dl (6.4-8.2) 09/02/18 12:00 Albumin 3.6 g/dl (3.4-5.0) 09/02/18 12:00 CARDIAC ENZYMES Creatine Kinase 111 U/L (26-308) 08/31/18 06:15 Troponin I 0.02 ng/ml (0.00-0.05) 08/31/18 06:15 Diagnostics: Head CT - completed Head CTA - completed, Carotid Doppler - completed Brain MRI - completed Plan/Assessment The patient is a 77 year old male, with a significant PMH of hypertension, hyperlipidemia, diabetes mellitus, who presented to the emergency department with aphasia, right sided weakness and right sided facial droop beginning 1 hour prior to arrival to ER on day of admission (approx 1:30 pm). As per EMS, the patient was last seen normal one hour prior while eating lunch and shortly after, began behaving less responsive with notable right sided weakness/ facial droop. noticed after lunch he was not verbally responding and called 911. After arrival to ER, his symptoms started to resolve but he still had mumbled speech in ER. I was contact by capri Centeno. With rapid improvement of symptoms, TPA was not given. Morning of 08/31/18, with aphasia improving this is improving. 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 Patient takes ASA at home 81mg, discussed with them that I would recommend adding plavix for dual antiplatelet because of his risk factors and for future CVA prevention. CUrrently on just plavix, would prefer dual antiplatelet regiement. Call sent out to cards to confirm this is acceptable to them. Cardiology consulted for further eval for Afib and echo as CVA suspicious for embolic phenomenon. On Statin, and LDL 53, within normal limits. Awaiting Echo,still pending. Conversed with daughter today at bedside, They are interested in outpatient therapy possibly at home which she said she discussed with Dr. Richardson. Speech improving as he was verbalizing numbers on dialpad on wall in Nepalese. Continued verbalization recommended. Reiterated need to be on dual antiplatelet. No new neurologic complaints. Speech/swallow note reviewed. Dr. Bañuelos note reviewed.
[2018-09-04] MEDS ORDERED: PT OWN MED DRAWER 7, Y5N ONE (10:23)
[2018-09-04] MEDS: HEPARIN NA (PORCINE) 5,000 UNITS/ML 1ML VIAL SQ SCH ×2 (10:24→21:11)
[2018-09-04] MEDS: RAMIPRIL 2.5 MG CAPSULE (FP) PO SCH (10:24)
[2018-09-04] MEDS: CLOPIDOGREL BISULFATE 75 MG TABLET (FP) PO SCH (10:24)
[2018-09-04] MEDS: ASPIRIN 81 MG CHEWABLE TABLETS PO SCH (10:24)
--- NOTE | 2018-09-04 10:41 | PN ---
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 CTA completed and no focal stenosis or cutoff. Seen by Cardiology No hx of afib as per records, cardiology, holter and outpatient office record review Pt was on Plavix in the past 2/2 to cardiac cath, which was stopped appropriately Plavix added along with asa 81 mg Echo pending Will need continue speech therapy outpatient Pt daughter c/o BLLE edema, wobbly gait today. - Current Medication List Current Medications: Active Medications Artificial Tears (Artificial Tears) 1 drop OU Q6H PRN PRN Reason: DRY EYES Last Admin: 09/03/18 10:48 Dose: 1 drop Aspirin (Asa -) 81 mg PO DAILY [facility] Last Admin: 09/04/18 10:24 Dose: 81 mg Atorvastatin Calcium (Lipitor -) 10 mg PO HS [facility] Last Admin: 09/03/18 21:29 Dose: 10 mg Clopidogrel Bisulfate (Plavix -) 75 mg PO DAILY [facility] Last Admin: 09/04/18 10:24 Dose: 75 mg Glipizide (Glucotrol -) 5 mg PO DAILY@0700 [facility] Last Admin: 09/04/18 06:15 Dose: 5 mg Heparin Sodium (Porcine) (Heparin -) 5,000 unit SQ BID [facility] Last Admin: 09/04/18 10:24 Dose: 5,000 unit Insulin Aspart (Novolog Vial Sliding Scale -) 1 vial SQ [facility]; Protocol Last Admin: 09/04/18 06:15 Dose: 2 units Metformin HCl (Glucophage -) 500 mg PO BID@0700,1630 [facility] Last Admin: 09/04/18 06:15 Dose: 500 mg Ramipril (Altace -) 2.5 mg PO DAILY [facility] Last Admin: 09/04/18 10:24 Dose: 2.5 mg - Objective Vital Signs: Vital Signs Temperature 97.4 F L 09/04/18 06:35 Pulse Rate 70 09/04/18 06:35 Respiratory Rate 18 09/04/18 06:35 Blood Pressure 142/81 09/04/18 06:35 O2 Sat by Pulse Oximetry (%) 97 09/03/18 21:00 Constitutional: Yes: Well Nourished, No Distress, Calm Cardiovascular: Yes: Regular Rate and Rhythm Respiratory: Yes: Regular Gastrointestinal: Yes: WNL Musculoskeletal: Yes: WNL Extremities: Yes: WNL Edema: Yes Edema: LLE: 1+, RLE: 1+ Peripheral Pulses WNL: Yes Neurological: Yes: Alert, Aphasia, Weakness Psychiatric: Yes: Alert Labs: CBC, BMP 08/31/18 06:15 09/02/18 12:00 INR, PTT INR 0.97 (0.83-1.09) 08/31/18 06:15 Problem List - Problems (1) Altered mental status Assessment/Plan: -2/2 to CVA -mental status improving -dual antiplatelet therapy Code(s): R41.82 - ALTERED MENTAL STATUS, UNSPECIFIED Qualifiers: Altered mental status type: disorientation Qualified Code(s): R41.0 - Disorientation, unspecified (2) CVA (cerebral vascular accident) Assessment/Plan: -Seen by Neurology -MRI brain+ C head reviewed -U/S carotid unremarkable -Echo pending -dual antiplatelet therapy -Rehab-speech and physical therapy outpatient Code(s): I63.9 - CEREBRAL INFARCTION, UNSPECIFIED (3) HLD (hyperlipidemia) Assessment/Plan: -LDL at goal at 55 mg/dl -Continue statin therapy Code(s): E78.5 - HYPERLIPIDEMIA, UNSPECIFIED (4) HTN (hypertension) Code(s): I10 - ESSENTIAL (PRIMARY) HYPERTENSION (5) Diabetes Assessment/Plan: -A1c at 7.2 -BGM AC HS -Metformin 500 mg po bid + Glipizide 5 mg po daily -Cr mildly elevated at 1.2, normal eGFR, would get renal input if metformin could be switched to DPP4 Code(s): E11.9 - TYPE 2 DIABETES MELLITUS WITHOUT COMPLICATIONS Qualifiers: Diabetes mellitus type: type 2 (6) CKD (chronic kidney disease) Assessment/Plan: -nephrology input -On Theodore Code(s): N18.9 - CHRONIC KIDNEY DISEASE, UNSPECIFIED Assessment/Plan see problem list Physical therapy DVT prophylaxis BLLE dopple to r/o DVT Edema-dependent? awaiting Echo results if weakness progressive, will get neuro to re-eval Elevate BLLE
--- NOTE | 2018-09-04 11:48 | PN ---
Progress Note, EKG MANAGER - Note Progress Note: Selected Entries 09/03/18 09/03/18 09/03/18 02:00 07:28 10:00 Breakfast 100% Lunch Supper Temperature 98.5 F 97.8 F 09/03/18 09/03/18 09/03/18 10:52 14:05 18:00 Breakfast 100% Lunch 100% Supper Temperature 98.1 F 98.6 F 98.9 F 09/03/18 09/03/18 09/04/18 19:52 22:00 02:00 Breakfast Lunch Supper 100% Temperature 97 F L 98.5 F 09/04/18 09/04/18 06:35 10:27 Breakfast 100% Lunch Supper Temperature 97.4 F L Laboratory Tests 08/31/18 06:15 WBC 7.3 Responds yes to many questions posed. More verbal. Still with receptive/ expressive Aphasia, requiring speech tx upon d/c. Family report that they can not drive pt to therapy. Hopefully homecare speech tx can be provided. Family educated on ways to maximize communication.
[2018-09-04] MEDS ORDERED: ACETAMINOPHEN 325 MG TABLET (FP) PO PRN (13:51)
--- NOTE | 2018-09-04 14:55 | PN ---
Progress Note, Physician Chief Complaint: Feels some difficulty walking with leg shuffling. No pain Sinus on tele History of Present Illness: 77 year old malke with a PMH of hypertension, hyperlipidemia, diabetes mellitus , and CAD. He has had 2 remote FL's and has had past coronary stents according ti the family. He presents now with a right sided weakness and aphasia. 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 - Current Medication List Current Medications: Active Medications Acetaminophen (Tylenol -) 650 mg PO Q4H PRN PRN Reason: PAIN OR FEVER Artificial Tears (Artificial Tears) 1 drop OU Q6H PRN PRN Reason: DRY EYES Last Admin: 09/03/18 10:48 Dose: 1 drop Aspirin (Asa -) 81 mg PO DAILY [facility] Last Admin: 09/04/18 10:24 Dose: 81 mg Atorvastatin Calcium (Lipitor -) 10 mg PO HS [facility] Last Admin: 09/03/18 21:29 Dose: 10 mg Clopidogrel Bisulfate (Plavix -) 75 mg PO DAILY [facility] Last Admin: 09/04/18 10:24 Dose: 75 mg Docusate Sodium (Colace -) 300 mg PO [facility] Glipizide (Glucotrol -) 5 mg PO DAILY@0700 [facility] Last Admin: 09/04/18 06:15 Dose: 5 mg Heparin Sodium (Porcine) (Heparin -) 5,000 unit SQ BID [facility] Last Admin: 09/04/18 10:24 Dose: 5,000 unit Insulin Aspart (Novolog Vial Sliding Scale -) 1 vial SQ [facility]; Protocol Last Admin: 09/04/18 11:23 Dose: 2 units Metformin HCl (Glucophage -) 500 mg PO BID@0700,1630 [facility] Last Admin: 09/04/18 06:15 Dose: 500 mg Ramipril (Altace -) 2.5 mg PO DAILY [facility] Last Admin: 09/04/18 10:24 Dose: 2.5 mg - Objective Vital Signs: Vital Signs Temperature 98.3 F 09/04/18 10:00 Pulse Rate 78 09/04/18 10:00 Respiratory Rate 18 09/04/18 10:00 Blood Pressure 155/91 09/04/18 10:00 O2 Sat by Pulse Oximetry (%) 98 09/04/18 09:00 Constitutional: Yes: No Distress Neck: Yes: Supple Cardiovascular: Yes: Regular Rate and Rhythm, S1, S2. No: JVD, Murmur Respiratory: Yes: CTA Bilaterally Gastrointestinal: Yes: Soft Edema: LLE: Trace, RLE: Trace Labs: CBC, BMP 08/31/18 06:15 09/02/18 12:00 INR, PTT INR 0.97 (0.83-1.09) 08/31/18 06:15 Problem List - Problems (1) CVA (cerebral vascular accident) Code(s): I63.9 - CEREBRAL INFARCTION, UNSPECIFIED (2) HTN (hypertension) Code(s): I10 - ESSENTIAL (PRIMARY) HYPERTENSION Assessment/Plan 77 year old man with a PMHx of hypertension, hyperlipidemia, diabetes mellitus, and CAD. He has had 2 remote FL's and has had past coronary stents according ti the family admitted with a right sided weakness and aphasia. Brain MRI 08/31/18 showed an acute left cerebral infarcts are noted suggestive of an embolic etiology. 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 No evidence of atrial fibrillation or flutter noted since admission. CVA Suspicious for cardioembolic Presently in NSR. No evidence of atrial fibrillation or flutter noted since admission. 1) Agree with Plavix/Atorvastatin/Ramipril 2) Carotid US with no stenosis 3) Obtain an echocardiogram 4) Need to look for occult afib: No afib on tele or holter. Would consider a LINQ implant (Implantable Loop Recorder), This monitors for about 3 years. Upon discharge can be set up for the [facility]. -Patient with complaint of shuffling his gait today but no pain. no gross focal neuro deficits but given change in gait/ability to walk would consider neuro re-eval. Nurse is aware and discussed with her. She already discussed with primary team and they are aware of symptoms. Nurse will contact to see if they want neuro to re-eval. HTN -consider increasing ramipril for better bp control
--- NOTE | 2018-09-04 15:13 | CONSULT ---
Consult Consult Specialty:: Nephrology ( Corey/ Jimmy) Reason for Consultation:: Abnormal renal functions - History of Present Illness Chief Complaint: Patient brought in with acute CVA. History of Present Illness: The patient is a 77 year old male, with a significant PMH of hypertension, hyperlipidemia, diabetes mellitus, who presents to the emergency department with aphasia, right sided weakness and right sided facial droop. His neurologic funcions started improving by the time he reached the hospital, but the speech remained garbled. 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.Reading/writing limited but reported to be functl baseline Home Medications - Allergies Allergies/Adverse Reactions: Allergies Allergy/AdvReac Type Severity Reaction Status Date / Time No Known Drug Allergies Allergy Verified 08/30/18 14:39 - Home Medications Home Medications: Ambulatory Orders Atorvastatin Calcium [Lipitor] 20 mg PO HS 08/13/12 Febuxostat [Uloric -] 40 mg PO DAILY 08/13/12 Metoprolol Tartrate [Lopressor -] 50 mg PO DAILY 08/13/12 Ramipril [Altace] 2.5 mg PO DAILY 08/13/12 Triamterene/Hydrochlorothiazid [Triamterene-Hctz 37.5-25 mg Tb] 1 each PO DAILY 08/13/12 Glipizide [Glipizide ER] 5 mg PO DAILY 08/30/18 Metformin HCl [Glucophage] 500 mg PO BID 08/30/18 Review of Systems - Review of Systems Constitutional: reports: Weakness Eyes: reports: No Symptoms HENT: reports: No Symptoms Neck: reports: No Symptoms. denies: Stiffness, Tenderness Cardiovascular: denies: Chest Pain, Palpitations, Shortness of Breath Respiratory: denies: No Symptoms Genitourinary: reports: No Symptoms Neurological: reports: Change in Speech, Confusion, Syncope, Weakness Physical Exam Vital Signs: Vital Signs Temperature 98.5 F 09/04/18 14:00 Pulse Rate 75 09/04/18 14:00 Respiratory Rate 18 09/04/18 14:00 Blood Pressure 136/71 09/04/18 14:00 O2 Sat by Pulse Oximetry (%) 98 09/04/18 09:00 Constitutional: Yes: Anxious Eyes: Yes: Conjunctiva Clear Cardiovascular: Yes: Regular Rate and Rhythm, S1, S2 Respiratory: Yes: CTA Bilaterally Gastrointestinal: Yes: Normal Bowel Sounds, Soft Renal/: No: Bladder Distention, CVA Tenderness - Left, CVA Tenderness - Right , Hematuria Edema: No Labs: CBC, BMP 08/31/18 06:15 09/02/18 12:00 Problem List - Problems (1) CKD (chronic kidney disease) Code(s): N18.9 - CHRONIC KIDNEY DISEASE, UNSPECIFIED (2) CVA (cerebral vascular accident) Code(s): I63.9 - CEREBRAL INFARCTION, UNSPECIFIED (3) Diabetes Code(s): E11.9 - TYPE 2 DIABETES MELLITUS WITHOUT COMPLICATIONS Qualifiers: Diabetes mellitus type: type 2 (4) HLD (hyperlipidemia) Code(s): E78.5 - HYPERLIPIDEMIA, UNSPECIFIED (5) HTN (hypertension) Code(s): I10 - ESSENTIAL (PRIMARY) HYPERTENSION (6) TIA (transient ischemic attack) Code(s): G45.9 - TRANSIENT CEREBRAL ISCHEMIC ATTACK, UNSPECIFIED Assessment/Plan The patient is a 77 year old male, with a significant PMH of hypertension, hyperlipidemia, diabetes mellitus, who presents to the emergency department with aphasia, right sided weakness and right sided facial droop. His neurologic funcions started improving by the time he reached the hospital, but the speech remained defective and mubled. Chronic Kidney disease in this patient with DM2, HTN, HLD...most likely etiology of the renal disease is Microvascular. cant r/o minimal Hemodynamic Renal failure because of the acute events. Electrolytes in acceptable range now. Will not order any detailed w/u at this juncture. Basic w/u including a Renal/Pelvic sonogram may be helpful, especially if the azotemia worsens. Concur with the current management. Thanks again. Daya Nicole MD
[2018-09-04] MEDS: ATORVASTATIN CA 10 MG TABLET (FP) PO SCH (21:11)
[2018-09-04] MEDS ORDERED: DOCUSATE SODIUM 100 MG CAPSULE (FP) PO SCH (22:00)
[2018-09-05] MEDS: INSULIN SLIDING SCALE (NOVOLOG) 1 VIAL SQ SCH ×2 (06:34→11:13)
[2018-09-05] MEDS: metFORMIN HCL 500 MG TABLET (FP) PO SCH (06:36)
[2018-09-05] MEDS: glipiZIDE 5 MG TABLET (FP) PO SCH (06:36)
[2018-09-05 08:13] LABS: BASO % 0.4 % (0-2.0); EOS % 0.3 % (0-4.5); HEMOGLOBIN 16.2 GM/dL (11.7-16.9); LYMPH % 19.9 % (8-40); MCH 35.9 pg (25.7-33.7); MCHC 35.1 g/dl (32.0-35.9); MONO % 13.6 % (3.8-10.2); NEUT % 65.8 % (42.8-82.8); PLATELET COUNT 172 K/MM3 (134-434); RBC 4.51 M/mm3 (4.00-5.60); RDW 14.1 % (11.9-15.9); WHITE BLOOD COUNT 6.8 K/mm3 (4.0-10.0)
--- NOTE | 2018-09-05 08:50 | PN ---
Progress Note (short form) - Note Progress Note: Neurology Chief Complaint: Aphasia History of Present Illness: The patient is a 77 year old male, with a significant PMH of hypertension, hyperlipidemia, diabetes mellitus, who presented to the emergency department with aphasia, right sided weakness and right sided facial droop beginning 1 hour prior to arrival to ER on day of admission (approx 1:30 pm). As per EMS, the patient was last seen normal one hour prior while eating lunch and shortly after, began behaving less responsive with notable right sided weakness/ facial droop. noticed after lunch he was not verbally responding and called 911. After arrival to ER, his symptoms started to resolve but he still had mumbled speech in ER. I was contact by Dr. Guthrie, capri du. With rapid improvement of symptoms, TPA was not given. Morning of 08/31/18, with aphasia improving this is improving. 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 CTA completed and no focal stenosis or cutoff. Patient takes ASA at home 81mg, discussed with them that I would recommend adding plavix for dual antiplatelet because of his risk factors and for future CVA prevention. Cardiology consulted, needs eval for Afib and echo as CVA suspicious for embolic phenomenon. On Statin, and LDL 53, within normal limits. Cardiology note reviewed, agreed with plavix. Remains on dual antiplatelet. Awaiting Echo,still pending. Complaints of LE swelling yesterday, U/S reviewed and without DVT. Ordered CT head as family concerned regarding his leg discomfort, no acute changes, previously noted CVA more clearly visualized. Speech continues to improve. Ambulating today. Allergies Allergy/AdvReac Type Severity Reaction Status Date / Time No Known Drug Allergies Allergy Verified 08/30/18 14:39 Active Medications Acetaminophen (Tylenol -) 650 mg PO Q4H PRN PRN Reason: PAIN OR FEVER Artificial Tears (Artificial Tears) 1 drop OU Q6H PRN PRN Reason: DRY EYES Last Admin: 09/03/18 10:48 Dose: 1 drop Aspirin (Asa -) 81 mg PO DAILY [facility] Last Admin: 09/04/18 10:24 Dose: 81 mg Atorvastatin Calcium (Lipitor -) 10 mg PO HS [facility] Last Admin: 09/04/18 21:11 Dose: 10 mg Clopidogrel Bisulfate (Plavix -) 75 mg PO DAILY [facility] Last Admin: 09/04/18 10:24 Dose: 75 mg Docusate Sodium (Colace -) 300 mg PO HS [facility] Last Admin: 09/04/18 21:11 Dose: 300 mg Glipizide (Glucotrol -) 5 mg PO DAILY@0700 [facility] Last Admin: 09/05/18 06:36 Dose: 5 mg Heparin Sodium (Porcine) (Heparin -) 5,000 unit SQ BID [facility] Last Admin: 09/04/18 21:11 Dose: 5,000 unit Insulin Aspart (Novolog Vial Sliding Scale -) 1 vial SQ ACHS [facility]; Protocol Last Admin: 09/05/18 06:34 Dose: Not Given Metformin HCl (Glucophage -) 500 mg PO BID@0700,1630 [facility] Last Admin: 09/05/18 06:36 Dose: 500 mg Ramipril (Altace -) 2.5 mg PO DAILY [facility] Last Admin: 09/04/18 10:24 Dose: 2.5 mg Physical Examination Vital Signs Period Temp Pulse Resp BP Sys/Agee Pulse Ox Last 24 Hr 98.2 F-98.6 F 70-78 17-18 123-155/66-91 95-98 Constitutional: Yes: Calm Cardiovascular: Yes: Regular Rate and Rhythm, S1, S2 Respiratory: Yes: CTA Bilaterally Gastrointestinal: Yes: Normal Bowel Sounds, Soft Edema: No Neurological: Yes: Alert, aphasia noted, moves B/l UE and LE equally, limited confrontation testing, sensory intact, finger to nose normal Labs: CBCD WBC 6.8 K/mm3 (4.0-10.0) 09/05/18 07:00 RBC 4.51 M/mm3 (4.00-5.60) 09/05/18 07:00 Hgb 16.2 GM/dL (11.7-16.9) 09/05/18 07:00 Hct 46.0 % (35.4-49) 09/05/18 07:00 MCV 102.0 fl (80-96) H 09/05/18 07:00 MCHC 35.1 g/dl (32.0-35.9) 09/05/18 07:00 RDW 14.1 % (11.9-15.9) 09/05/18 07:00 Plt Count 172 K/MM3 (134-434) 09/05/18 07:00 MPV 8.0 fl (7.5-11.1) 09/05/18 07:00 CMP Sodium 143 mmol/L (136-145) 09/05/18 07:00 Potassium 3.7 mmol/L (3.5-5.1) 09/05/18 07:00 Chloride 112 mmol/L (98-107) H 09/05/18 07:00 Carbon Dioxide 25 mmol/L (21-32) 09/05/18 07:00 Anion Gap 6 MMOL/L (8-16) L 09/05/18 07:00 BUN 24 mg/dL (7-18) H 09/05/18 07:00 Creatinine 1.1 mg/dL (0.55-1.3) 09/05/18 07:00 Creat Clearance w eGFR > 60 (>60) 09/05/18 07:00 Random Glucose 137 mg/dL (74-106) H 09/05/18 07:00 Calcium 8.9 mg/dL (8.5-10.1) 09/05/18 07:00 Total Bilirubin 2.2 mg/dL (0.2-1) H 09/05/18 07:00 AST 26 U/L (15-37) 09/05/18 07:00 ALT 56 U/L (13-61) 09/05/18 07:00 Alkaline Phosphatase 54 U/L (45-117) 09/05/18 07:00 Total Protein 7.1 g/dl (6.4-8.2) 09/05/18 07:00 Albumin 3.8 g/dl (3.4-5.0) 09/05/18 07:00 CARDIAC ENZYMES Creatine Kinase 111 U/L (26-308) 08/31/18 06:15 Troponin I 0.02 ng/ml (0.00-0.05) 08/31/18 06:15 Diagnostics: Head CT - completed Head CTA - completed, Carotid Doppler - completed Brain MRI - completed Plan/Assessment The patient is a 77 year old male, with a significant PMH of hypertension, hyperlipidemia, diabetes mellitus, who presented to the emergency department with aphasia, right sided weakness and right sided facial droop beginning 1 hour prior to arrival to ER on day of admission (approx 1:30 pm). As per EMS, the patient was last seen normal one hour prior while eating lunch and shortly after, began behaving less responsive with notable right sided weakness/ facial droop. noticed after lunch he was not verbally responding and called 911. After arrival to ER, his symptoms started to resolve but he still had mumbled speech in ER. I was contact by Dr. Guthrie, capri du. With rapid improvement of symptoms, TPA was not given. Morning of 08/31/18, with aphasia improving this is improving. 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 Patient takes ASA at home 81mg, discussed with them that I would recommend adding plavix for dual antiplatelet because of his risk factors and for future CVA prevention. CUrrently on just plavix, would prefer dual antiplatelet regiement. Call sent out to cards to confirm this is acceptable to them. Cardiology consulted for further eval for Afib and echo as CVA suspicious for embolic phenomenon. On Statin, and LDL 53, within normal limits. Awaiting Echo,still pending. Complaints of LE swelling yesterday, U/S reviewed and without DVT. Ordered CT head as family concerned regarding his leg discomfort, no acute changes, previously noted CVA more clearly visualized. Speech continues to improve. Ambulating today. Continued verbalization recommended. Reiterated need to be on dual antiplatelet. No new neurologic complaints. Discharge planning.
[2018-09-05 08:51] LABS: ALBUMIN 3.8 g/dl (3.4-5.0); ALK PHOS 54 U/L (45-117); ANION GAP 6 MMOL/L (8-16); BILIRUBIN,TOTAL 2.2 mg/dL (0.2-1); BLOOD UREA NITROGEN 24 mg/dL (7-18); CALCIUM 8.9 mg/dL (8.5-10.1); CHLORIDE 112 mmol/L (98-107); CO2 25 mmol/L (21-32); CREATININE 1.1 mg/dL (0.55-1.3); GLUCOSE,RANDOM 137 mg/dL (74-106); POTASSIUM 3.7 mmol/L (3.5-5.1); SGOT/AST 26 U/L (15-37); SGPT/ALT 56 U/L (13-61); SODIUM 143 mmol/L (136-145); TOT PROT 7.1 g/dl (6.4-8.2); URIC ACID 4.8 mg/dL (2.6-7.2)
--- NOTE | 2018-09-05 08:53 | ECHO ---
Version: 1 Name: SAIGE CARRANZA Exam: Adult Echocardiogram Study Date: 09/04/2018, 10:23 AM Age: 77 Years MMode/2D Measurements & Calculations IVSd: 1.07 cm LVIDs: 3.1 cm LVIDd: 4.4 cm LVPWd: 1.01 cm Ao root diam: 3.5 cm LA dimension: 2.7 cm Doppler Measurements & Calculations MV E max medardo: 53.4 cm/sec Med E/e': 19.6 MV A max medardo: 98.0 cm/sec Med Peak E' Medardo: 2.7 cm/sec MV E/A: 0.55 Lat E/e': 15.3 Lat Peak E' Medardo: 3.5 cm/sec Left Ventricle The left ventricle is grossly normal size. Ejection Fraction = 55%. E/A reversal consistent with but not diagnostic of poor LV compliance. The left ventricular wall motion is normal. Mitral Valve There is mild mitral valve thickening. There is mild mitral regurgitation. Tricuspid Valve There is mild tricuspid regurgitation. Pulmonic Valve The pulmonic valve is not well visualized. Mild pulmonic valvular regurgitation. Great Vessels The aortic root is normal size. Pericardium/Pleura There is no pericardial effusion. Summary Statements The left ventricle is grossly normal size. Ejection Fraction = 55%. E/A reversal consistent with but not diagnostic of poor LV compliance The left ventricular wall motion is normal. The pulmonic valve is not well visualized. Mild pulmonic valvular regurgitation. There is mild tricuspid regurgitation. There is mild mitral valve thickening. There is mild mitral regurgitation. The aortic root is normal size. There is no pericardial effusion. Samuel Cintron MD 09/04/2018, 10:32 PM Ordering Physician: Cici Adler Performed By: Julia Art
[2018-09-05] MEDS: ASPIRIN 81 MG CHEWABLE TABLETS PO SCH (09:21)
[2018-09-05] MEDS: CLOPIDOGREL BISULFATE 75 MG TABLET (FP) PO SCH (09:21)
[2018-09-05] MEDS: RAMIPRIL 2.5 MG CAPSULE (FP) PO SCH (09:21)
[2018-09-05] MEDS: HEPARIN NA (PORCINE) 5,000 UNITS/ML 1ML VIAL SQ SCH (09:22)
--- NOTE | 2018-09-05 10:19 | PN ---
Progress Note, Physician Chief Complaint: The patient seen and examined in his room. Feeling much better. All ready to go home. The patient came with new onset CVA. Has improved significantly. Speech still somewhat abnormal History of Present Illness: The patient is a 77 year old male, with a significant PMH of hypertension, hyperlipidemia, diabetes mellitus, who presents to the emergency department with aphasia, right sided weakness and right sided facial droop. His neurologic funcions started improving by the time he reached the hospital, but the speech remained garbled. - Current Medication List Current Medications: Active Medications Acetaminophen (Tylenol -) 650 mg PO Q4H PRN PRN Reason: PAIN OR FEVER Artificial Tears (Artificial Tears) 1 drop OU Q6H PRN PRN Reason: DRY EYES Last Admin: 09/03/18 10:48 Dose: 1 drop Aspirin (Asa -) 81 mg PO DAILY [facility] Last Admin: 09/05/18 09:21 Dose: 81 mg Atorvastatin Calcium (Lipitor -) 10 mg PO [facility] Last Admin: 09/04/18 21:11 Dose: 10 mg Clopidogrel Bisulfate (Plavix -) 75 mg PO DAILY [facility] Last Admin: 09/05/18 09:21 Dose: 75 mg Docusate Sodium (Colace -) 300 mg PO [facility] Last Admin: 09/04/18 21:11 Dose: 300 mg Glipizide (Glucotrol -) 5 mg PO DAILY@0700 [facility] Last Admin: 09/05/18 06:36 Dose: 5 mg Heparin Sodium (Porcine) (Heparin -) 5,000 unit SQ BID [facility] Last Admin: 09/05/18 09:22 Dose: 5,000 unit Insulin Aspart (Novolog Vial Sliding Scale -) 1 vial SQ [facility]; Protocol Last Admin: 09/05/18 06:34 Dose: Not Given Metformin HCl (Glucophage -) 500 mg PO BID@0700,1630 [facility] Last Admin: 09/05/18 06:36 Dose: 500 mg Ramipril (Altace -) 2.5 mg PO DAILY [facility] Last Admin: 09/05/18 09:21 Dose: 2.5 mg - Objective Vital Signs: Vital Signs Temperature 98.5 F 09/05/18 06:00 Pulse Rate 72 09/05/18 06:00 Respiratory Rate 18 09/05/18 06:00 Blood Pressure 146/81 09/05/18 06:00 O2 Sat by Pulse Oximetry (%) 95 09/04/18 21:00 Constitutional: Yes: Well Nourished, No Distress, Anxious Eyes: Yes: Conjunctiva Clear HENT: Yes: Normocephalic Neck: Yes: Trachea Midline Cardiovascular: Yes: Pulse Irregular, S1, S2 Respiratory: Yes: CTA Bilaterally, Diminished Gastrointestinal: Yes: Normal Bowel Sounds, Soft Musculoskeletal: Yes: Joint Stiffness Edema: No Neurological: Yes: Alert, Oriented, Dysarthria Labs: CBC, BMP 09/05/18 07:00 09/05/18 07:00 INR, PTT INR 0.97 (0.83-1.09) 08/31/18 06:15 Problem List - Problems (1) CKD (chronic kidney disease) Code(s): N18.9 - CHRONIC KIDNEY DISEASE, UNSPECIFIED (2) CVA (cerebral vascular accident) Code(s): I63.9 - CEREBRAL INFARCTION, UNSPECIFIED (3) Diabetes Code(s): E11.9 - TYPE 2 DIABETES MELLITUS WITHOUT COMPLICATIONS Qualifiers: Diabetes mellitus type: type 2 (4) HLD (hyperlipidemia) Code(s): E78.5 - HYPERLIPIDEMIA, UNSPECIFIED (5) HTN (hypertension) Code(s): I10 - ESSENTIAL (PRIMARY) HYPERTENSION (6) TIA (transient ischemic attack) Code(s): G45.9 - TRANSIENT CEREBRAL ISCHEMIC ATTACK, UNSPECIFIED Assessment/Plan The patient is a 77 year old male, with a significant PMH of hypertension, hyperlipidemia, diabetes mellitus, who presents to the emergency department with aphasia, right sided weakness and right sided facial droop. His neurologic funcions started improving by the time he reached the hospital, but the speech remained defective and mubled. Chronic Kidney disease in this patient with DM2, HTN, HLD...most likely etiology of the renal disease is Microvascular. cant r/o minimal Hemodynamic Renal failure because of the acute events. The Renal functions have improved since admission. Electrolytes in acceptable range now. Will not order any detailed w/u at this juncture. If discharged, we shall follow u as outpatient. Concur with the current management. Thanks again. Daya Nicole MD
[2018-09-05 10:50] VITALS: BP 142/80; PULSE 66; TEMP 98.3
--- NOTE | 2018-09-05 11:50 | DS ---
Physical Examination Vital Signs: Vital Signs Temperature 98.3 F 09/05/18 10:00 Pulse Rate 66 09/05/18 10:00 Respiratory Rate 18 09/05/18 10:00 Blood Pressure 142/80 09/05/18 10:00 O2 Sat by Pulse Oximetry (%) 96 09/05/18 09:00 Constitutional: Yes: Calm Cardiovascular: Yes: Regular Rate and Rhythm, S1, S2 Respiratory: Yes: CTA Bilaterally Gastrointestinal: Yes: Normal Bowel Sounds, Soft Neurological: Yes: Other (able to speak) Labs: CBC, BMP 09/05/18 07:00 09/05/18 07:00 Discharge Summary Reason For Visit: TRANSIENT ISCHEMIC ATTACK/ALTERED MENTAL STATUS Current Active Problems Altered mental status (Acute) CKD (chronic kidney disease) (Acute) CVA (cerebral vascular accident) (Acute) Diabetes (Acute) HLD (hyperlipidemia) (Acute) HTN (hypertension) (Acute) TIA (transient ischemic attack) (Acute) Hospital Course: PCP: Marlen Richardson - Admission Chief Complaint: came in for aphasia History of Present Illness: The patient is a 77 year old male, with a significant PMH of hypertension, hyperlipidemia, diabetes mellitus, who presents to the emergency department with aphasia, right sided weakness and right sided facial droop beginning 1 hour ago (approx 1:30 pm). As per EMS, the patient was last seen normal one hour ago while eating lunch and shortly after began behaving less responsive with notable right sided weakness/ facial droop. noticed after lunch he was not verbally responding and called 911 in ER his symptoms started to resolve but he still has mumblled speech History Source: Family Member, Medical Record - Past Medical History Cardiovascular: Yes: CAD, HTN, Hyperlipdemia Endocrine: Yes: Diabetes Mellitus - Past Surgical History Past Surgical History: Yes: Hernia Repair in hospital tele floor - NSR holter also NSR echo left ventricle systolic function normal ejectin fraction 55% MRI acute left cerebral infarct s suspicious embolic in nature renal on board neurology saw patient started on asa,plavix and statin no evidence of afib in hospital or office records will need a implantable loop recorder to look for occult afib speech therapy as outpatient Condition: Stable - Instructions Diet, Activity, Other Instructions: follow up at [facility] for implantable loop recorder Referrals: Marlen Richardson MD [Primary Care Provider] - Lobito Markham MD [Staff Physician] - 1 Week (for implantable loop recorder) Disposition: VNS/HOME HEALTH CARE - Home Medications Comprehensive Discharge Medication List: Ambulatory Orders Atorvastatin Calcium [Lipitor] 20 mg PO HS 08/13/12 Febuxostat [Uloric -] 40 mg PO DAILY 08/13/12 Metoprolol Tartrate [Lopressor -] 50 mg PO DAILY 08/13/12 Ramipril [Altace] 2.5 mg PO DAILY 08/13/12 Glipizide [Glipizide ER] 5 mg PO DAILY 08/30/18 Metformin HCl [Glucophage] 500 mg PO BID 08/30/18 Aspirin [ASA -] 81 mg PO DAILY #30 tab.chew [facility] 1 09/05/18 Clopidogrel Bisulfate [Plavix -] 75 mg PO DAILY #30 tablet [facility] 1 09/05/18
== END 2018-09-05 13:09 | disposition home health service (06) | DRG 65 ==
LOC: JER 14:37 → JERBED 16:14 → J4S 18:20
PROVIDERS: ADMIT Family Medicine; ATTEND Family Medicine
DX: I63.49 Cerebral infarction due to embolism of other cerebral artery (principal); G81.91 Hemiplegia, unspecified affecting right dominant side; E87.1 Hypo-osmolality and hyponatremia; I12.9 Hypertensive chronic kidney disease with stage 1 through stage 4 chronic kidney disease, or unspecified chronic kidney disease; E11.22 Type 2 diabetes mellitus with diabetic chronic kidney disease; N18.9 Chronic kidney disease, unspecified; R47.01 Aphasia; E78.5 Hyperlipidemia, unspecified; R29.810 Facial weakness; R47.1 Dysarthria and anarthria; I25.10 Atherosclerotic heart disease of native coronary artery without angina pectoris; E87.6 Hypokalemia; I25.2 Old myocardial infarction; Z79.84 Long term (current) use of oral hypoglycemic drugs; Z95.5 Presence of coronary angioplasty implant and graft
CPT/HCPCS: 36415; 70450-TC; 70496-TC; 70551-TC; 71045-TC-FY; 80053; 80061; 80307; 82465; 82550; 82553; 82962; 83036; 83718; 83721; 83735; 83880; 84100; 84478; 84484; 84550; 85025; 85027; 85610; 85730; 86850; 86900; 86901; 93005; 93010; 93225; 93226; 93306-TC; 93880-TC; 93970-TC; 97116-GP; 97161-GP; 99285-25; J1644; J7030

== ENCOUNTER 2019-09-05 18:54 | Emergency (ER) | payer OTHER, BC ==
--- NOTE | 2019-09-05 19:07 | PDOC ---
Rapid Medical Evaluation Chief Complaint: Laceration Time Seen by Provider: 09/05/19 18:59 Medical Evaluation: Allergies Allergy/AdvReac Type Severity Reaction Status Date / Time No Known Drug Allergies Allergy Verified 08/30/18 14:39 09/05/19 19:05 CC: right thumb lac while using meat hanger PE: deferred- compression bandage in place. Orders: xray, Boostrix Patient will proceed to ED for evaluation. Discharge Disposition - Diagnosis Laceration - Referrals - Patient Instructions - Post Discharge Activity
[2019-09-05] MEDS ORDERED: DIPHTH,PERTUSS(ACELL),TET 0.5 ML DISP.SYRIN IM ONE ×2 (19:08→20:13)
[2019-09-05 19:10] VITALS: BP 139/71; PULSE 66; TEMP 97.7; BMI 28.2
--- NOTE | 2019-09-05 20:16 | PDOC ---
History of Present Illness - General Chief Complaint: Laceration Stated Complaint: R THUMB INJURY/LACERATION Time Seen by Provider: 09/05/19 18:59 History Source: Patient Exam Limitations: Clinical Condition - History of Present Illness Initial Comments: 09/05/19 20:17 Patient with multiple comorbidities on Plavix presented for evaluation of laceration to tip of right thumb status post using a kitchen knife accidentally cut the tip of right thumb which will stop bleeding due to patient on anticoagulated therapy. Patient does not recall last tetanus vaccine. Denies numbness or tingling sensation. Denies any other symptoms Timing/Duration: reports: just prior to arrival Past History - Past Medical History Allergies/Adverse Reactions: Allergies Allergy/AdvReac Type Severity Reaction Status Date / Time No Known Drug Allergies Allergy Verified 09/05/19 19:09 Home Medications: Ambulatory Orders Atorvastatin Calcium [Lipitor] 20 mg PO HS 08/13/12 Febuxostat [Uloric -] 40 mg PO DAILY 08/13/12 Metoprolol Tartrate [Lopressor -] 50 mg PO DAILY 08/13/12 Ramipril [Altace] 2.5 mg PO DAILY 08/13/12 Glipizide [Glipizide ER] 5 mg PO DAILY 08/30/18 Metformin HCl [Glucophage] 500 mg PO BID 08/30/18 Aspirin [ASA -] 81 mg PO DAILY #30 tab.chew MDD 1 09/05/18 Clopidogrel Bisulfate [Plavix -] 75 mg PO DAILY #30 tablet MDD 1 09/05/18 Cephalexin Monohydrate [Keflex -] 500 mg PO BID 7 Days #14 capsule 09/05/19 Anemia: No Asthma: No Cardiac Disorders: Yes ([place] x2, stents) COPD: No Diabetes: Yes HTN: Yes Hypercholesterolemia: Yes Kidney Stones: Yes - Surgical History Abdominal Surgery: No Appendectomy: Yes Cardiac Surgery: (stents) Orthopedic Surgery: No - Immunization History Td Vaccination: No (never has had one/doesnt want one) - Psycho Social/Smoking Cessation Hx Smoking Status: No Smoking History: Never smoked Have you smoked in the past 12 months: No Number of Cigarettes Smoked Daily: 0 Information on smoking cessation initiated: No Hx Alcohol Use: No Drug/Substance Use Hx: No Substance Use Type: Alcohol Review of Systems - Review of Systems Able to Perform ROS?: Yes Is the patient limited Polish proficient: No Constitutional: No: Chills, Fever, Malaise HEENTM: No: Symptoms Reported, See HPI, Eye Pain, Blurred Vision, Tearing, Recent change in vision, Double Vision, Cataracts, Ear Pain, Ocular Prothesis, Ear Discharge, Nose Pain, Nose Congestion, Tinnitus, Nose Bleeding, Hearing Loss , Throat Pain, Throat Swelling, Mouth Pain, Dental Problems, Difficulty Swallowing, Mouth Swelling, Other Respiratory: No: Symptoms reported, See HPI, Cough, Orthopnea, Shortness of Breath, SOB with Exertion, SOB at Rest, Stridor, Wheezing, Productive cough, Hemoptysis, Other Musculoskeletal: Yes: Symptoms Reported, See HPI, Muscle Pain (right thumb over laceration) Integumentary: Yes: Symptoms Reported, See HPI, Other (laceration to tip of right thumb) Neurological: No: Symptoms reported, Numbness, Paresthesia, Tingling All Other Systems: Reviewed and Negative *Physical Exam - Vital Signs Last Vital Signs Temp Pulse Resp BP Pulse Ox 97.7 F 66 17 139/71 100 09/05/19 19:05 09/05/19 19:05 09/05/19 19:05 09/05/19 19:05 09/05/19 19:05 - Physical Exam 09/05/19 20:20 GENERAL: Well developed, well nourished. Awake and alert. No acute distress. PULMONARY: No evidence of respiratory distress. MUSCULOSKELETAL : Mild tenderness over dorsal aspect of nailbed of right thumb over laceration area. Full range of motion of thumb. 5 out of 5 muscle strength to right thumb SKIN: Warm and dry. Normal capillary refill. 3 cm linear laceration with a flap to distal aspect of tip of right thumb to nailbed with moderate bleeding. NEUROLOGICAL: Alert, awake, appropriate. No motor deficits in the lower extremities. Gait is normal without ataxia. PSYCHIATRIC: Cooperative. Good eye contact. Appropriate mood and affect. General Appearance: Yes: Nourished, Appropriately Dressed. No: Apparent Distress Procedures - Laceration/Wound Repair Right Anterior Distal Plantar Finger 1st digit Wound Length: 2.6 to 5.0 cm (3cm) Wound Explored: clean, no foreign body present Wound's Depth, Shape: linear, flap Irrigated w/ Saline: Yes Betadine Prep: Yes Anesthesia: 1% Lidocaine Amount of Anesthetic (ccs): 2 Wound Repaired With: Sutures, Dermabond Suture Size/Type: 5:0, nylon Number of Sutures: 5 Layer Closure: No Sterile Dressing Applied: Yes Splint Applied: Yes Sling Applied: No Medical Decision Making - Medical Decision Making 09/05/19 20:18 Patient with multiple comorbidities on Plavix presented for evaluation of laceration to tip of right thumb status post using a kitchen knife accidentally cut the tip of right thumb which will stop bleeding due to patient on anticoagulated therapy. Patient does not recall last tetanus vaccine. Denies numbness or tingling sensation. Denies any other symptoms Exam significant for 3 cm laceration with a flap to tip of distal phalange of right thumb with small area of fingernail avulsion with moderate bleeding. Wound cleaned with Betadine and closed with 5 interrupted 5-0 nylon sutures after wound infiltrated with 2 cc lidocaine. Wound covered with adhesive bandage and finger splint placed to wound. Tetanus vaccine ordered. Patient stable for discharge on Keflex antibiotic for infection prophylaxis with follow- up in 1 week for suture removal Discharge - Discharge Information Problems reviewed: Yes Clinical Impression/Diagnosis: Laceration of right thumb with damage to nail Qualifiers: Encounter type: sequela Foreign body presence: without foreign body Qualified Code(s): S61.111S - Laceration without foreign body of right thumb with damage to nail, sequela Condition: Stable Disposition: HOME - Admission No - Additional Discharge Information Prescriptions: Cephalexin Monohydrate [Keflex -] 500 mg PO BID 7 Days #14 capsule - Follow up/Referral - Patient Discharge Instructions Patient Printed Discharge Instructions: DI for Laceration Repair Additional Instructions: Keep wound clean and dry for the next 24 hours. Keep provided finger splint on for the next 4 to 5 days to help protect finger. You can remove finger splint after tomorrow when taking a shower and put it back after shower. Follow-up in 1 week for suture removal - Post Discharge Activity
== END 2019-09-05 20:16 | disposition home or self-care (01) ==
LOC: JERFT 18:54
PROC: 3E0234Z Introduction of Serum, Toxoid and Vaccine into Muscle, Percutaneous Approach (ICD-10-PCS; principal; 2019-09-05)
PROC: 0HQFXZZ Repair Right Hand Skin, External Approach (ICD-10-PCS; 2019-09-05)
PROC: 2W3GX1Z Immobilization of Right Thumb using Splint (ICD-10-PCS; 2019-09-05)
DX: S61.111A Laceration without foreign body of right thumb with damage to nail, initial encounter (principal); W26.0XXA Contact with knife, initial encounter; Y93.G1 Activity, food preparation and clean up; Y92.010 Kitchen of single-family (private) house as the place of occurrence of the external cause; Y99.8 Other external cause status; I25.10 Atherosclerotic heart disease of native coronary artery without angina pectoris; I10 Essential (primary) hypertension; Z95.5 Presence of coronary angioplasty implant and graft; E11.9 Type 2 diabetes mellitus without complications; Z79.84 Long term (current) use of oral hypoglycemic drugs; E78.00 Pure hypercholesterolemia, unspecified; Z87.442 Personal history of urinary calculi; Z79.02 Long term (current) use of antithrombotics/antiplatelets
CPT/HCPCS: 12002-25; 29130; 90471; 90715; 99284-25

== ENCOUNTER 2019-09-12 07:18 | Emergency (ER) | payer OTHER, BC ==
[2019-09-12 07:49] VITALS: BP 141/68; PULSE 61; TEMP 97.7; BMI 28.2
--- NOTE | 2019-09-12 07:54 | PDOC ---
Suture Removal/Wound Check HPI - History of Present Illness History Source: Yes: Patient Exam Limitations: Yes: No Limitations Treated at: [facility] ED - Previous ED Treatment Type of procedure performed on last visit: Yes: Laceration Repair Tetanus Immunization: Yes: Up to Date <Patricia Bolden - Last Filed: 09/12/19 07:47> <Kamron Guthrie - Last Filed: 09/12/19 14:44> - History of Present Illness Chief Complaint: Suture/Staple Removal(Here) Stated Complaint: HAND INJURY Time Seen by Provider: 09/12/19 07:47 Past History - Travel Traveled outside of the country in the last 30 days: No Close contact w/someone who was outside of country & ill: No - Past Medical History Anemia: No Asthma: No Cardiac Disorders: Yes (GA x2, stents) COPD: No Diabetes: Yes HTN: Yes Hypercholesterolemia: Yes Kidney Stones: Yes - Surgical History Abdominal Surgery: No Appendectomy: Yes Cardiac Surgery: (stents) Orthopedic Surgery: No - Immunization History Td Vaccination: No (never has had one/doesnt want one) - Psycho Social/Smoking Cessation Hx Smoking Status: No Smoking History: Never smoked Have you smoked in the past 12 months: No Number of Cigarettes Smoked Daily: 0 Hx Alcohol Use: No Drug/Substance Use Hx: No Substance Use Type: Alcohol <Patricia Bolden - Last Filed: 09/12/19 07:47> <Kamron Guthrie - Last Filed: 09/12/19 14:44> - Past Medical History Allergies/Adverse Reactions: Allergies Allergy/AdvReac Type Severity Reaction Status Date / Time No Known Drug Allergies Allergy Verified 09/12/19 07:43 Home Medications: Ambulatory Orders Atorvastatin Calcium [Lipitor] 20 mg PO HS 08/13/12 Febuxostat [Uloric -] 40 mg PO DAILY 08/13/12 Metoprolol Tartrate [Lopressor -] 50 mg PO DAILY 08/13/12 Ramipril [Altace] 5 mg PO DAILY 08/13/12 Glipizide [Glipizide ER] 5 mg PO DAILY 08/30/18 Metformin HCl [Glucophage] 500 mg PO BID 08/30/18 Aspirin [ASA -] 81 mg PO DAILY #30 tab.chew MDD 1 09/05/18 Clopidogrel Bisulfate [Plavix -] 75 mg PO DAILY #30 tablet MDD 1 09/05/18 Cephalexin Monohydrate [Keflex -] 500 mg PO BID 7 Days #14 capsule 09/05/19 Allopurinol 300 mg PO DAILY 09/12/19 Furosemide [Lasix -] 20 mg PO DAILY 09/12/19 Suture Removal/Wound Check PE - Physical Exam Laceration/Wound Check Symptoms: reports: Improved. denies: Fever, Chills, Redness, Discharge Current Severity Level: None Maximum Severity Level: None Location of Laceration/Wound: left: Finger (thumb; 4 simple interrupted sutures in place; one fell out) <Patricia Bolden - Last Filed: 09/12/19 07:47> *Review of Systems - Review of Systems Constitutional: No: Chills, Fever, Weakness Integumentary: No: Bruising, Erythema, Pruritus, Rash <Patricia Bolden - Last Filed: 09/12/19 07:47> *Physical Exam - Physical Exam General Appearance: Yes: Nourished, Appropriately Dressed. No: Apparent Distress Integumentary: positive: Normal Color, Dry, Warm. negative: Erythema, Rash, Swelling, Bruising <Patricia Bolden - Last Filed: 09/12/19 07:47> - Vital Signs Last Vital Signs Temp Pulse Resp BP Pulse Ox 97.7 F 61 16 141/68 100 09/12/19 07:48 09/12/19 07:48 09/12/19 07:48 09/12/19 07:48 09/12/19 07:48 <Kamron Guthrie - Last Filed: 09/12/19 14:44> Medical Decision Making - Medical Decision Making 09/12/19 07:56 The patient is a 78-year-old male who presents to the ER today for suture removal. He had a stitches placed 1 week ago in our ER after cutting the tip of his right finger while cutting deli meat. He states that the wound has healed well and he has had no issues. A/P: Suture removal On exam for simple interrupted sutures intact, one has fallen out. Wound is well approximated, and well-healed. The remaining 4 sutures stitches were removed today. We will discharge home I discussed the physical exam findings, ancillary test results and final diagnoses with the patient. I answered all of the patient's questions. The patient was satisfied with the care received and felt comfortable with the discharge plan and treatment plan. The Patient agrees to follow up with the primary care physician/specialist within 24-72 hours. Return precautions were given. <Patricia Bolden - Last Filed: 09/12/19 07:47> - Medical Decision Making 09/12/19 14:44 I reviewed the case of the mid-level practitioner and was available for consultation while in the emergency department <Kamron Guthrie - Last Filed: 09/12/19 14:44> Discharge - Discharge Information Problems reviewed: Yes - Admission No <Patricia Bolden - Last Filed: 09/12/19 07:47> <Kamron Guthrie - Last Filed: 09/12/19 14:44> - Discharge Information Clinical Impression/Diagnosis: Visit for suture removal Condition: Stable Disposition: HOME - Patient Discharge Instructions Patient Printed Discharge Instructions: DI for Suture Removal Additional Instructions: You had your sutures/odette removed today. Please use bacitracin on the site for the next week. Avoid soaking the area with water for 1 more week as to what the wound fully heal. Follow-up with her primary care doctor as needed Return to the emergency department if you develop fevers, drainage from the site , increased pain, or have any changes in your symptoms. - Post Discharge Activity Work/Back to School Note: Back to Work
== END 2019-09-12 08:03 | disposition home or self-care (01) ==
LOC: JER 07:18
DX: Z48.02 Encounter for removal of sutures (principal)
CPT/HCPCS: 99281-25

== ENCOUNTER 2020-09-04 15:02 | Inpatient (IN) | payer OTHER, BC ==
[2020-09-04] MEDS ORDERED: ACETAMINOPHEN 500 MG TABLET (FP) PO ONE (15:57)
[2020-09-04] MEDS ORDERED: ACETAMINOPHEN INJECTION 100 ML IVPB ONE (16:01)
[2020-09-04 16:12] LABS: BASO % 0.3 % (0-2.0); EOS % 0.2 % (0-4.5); HEMATOCRIT 47.3 % (35.4-49); HEMOGLOBIN 16.2 GM/dL (11.7-16.9); LYMPH % 5.3 % (8-40); MCH 34.8 pg (25.7-33.7); MCHC 34.1 g/dl (32.0-35.9); MEAN CELL VOLUME 101.8 fl (80-96); MEAN PLT VOLUME 8.8 fl (7.5-11.1); MONO % 12.5 % (3.8-10.2); NEUT % 81.7 % (42.8-82.8); PLATELET COUNT 147 K/MM3 (134-434); RBC 4.65 M/mm3 (4.00-5.60); RDW 13.7 % (11.9-15.9); WHITE BLOOD COUNT 6.9 K/mm3 (4.0-10.0)
[2020-09-04 16:21] LABS: INR 1.43 (0.83-1.09); PROTHROMBIN TIME (PATIENT) 17.4 SEC (9.7-13.0)
[2020-09-04 16:24] LABS: ACTIVATED PTT 29.9 SECONDS (25.2-36.5)
[2020-09-04] MEDS ORDERED: DEXAMETHASONE SOD PHOSPHATE 4 MG/1 ML VIAL IVPUSH ONE (16:45)
[2020-09-04 16:46] LABS: POTASSIUM 3.8 mmol/L (3.5-5.1)
[2020-09-04 16:49] LABS: CALCIUM 9.3 mg/dL (8.5-10.1)
[2020-09-04 16:50] LABS: ALBUMIN 3.8 g/dl (3.4-5.0); BLOOD UREA NITROGEN 24.2 mg/dL (7-18)
[2020-09-04] MEDS ORDERED: DEXAMETHASONE SOD PHOSPHATE 4 MG/1 ML VIAL ONE (16:51)
[2020-09-04 16:53] LABS: CREATININE 1.4 mg/dL (0.55-1.3)
[2020-09-04 16:55] LABS: TOT PROT 6.7 g/dl (6.4-8.2)
[2020-09-04 17:01] LABS: BILIRUBIN,TOTAL 1.5 mg/dL (0.2-1)
[2020-09-04 17:16] LABS: EPI CELLS 1 /uL (0-25.1); HYALINE CASTS 0 /uL (0-3.1); URINE APPEARANCE CLEAR; URINE BACTERIA 41 /uL (0-1359); URINE BILIRUBIN NEGATIVE (NEGATIVE); URINE COLOR YELLOW; URINE GLUCOSE (UA) NEGATIVE (NEGATIVE); URINE KETONE NEGATIVE (NEGATIVE); URINE LEUK ESTERASE NEGATIVE (NEGATIVE); URINE NITRITE NEGATIVE (NEGATIVE); URINE PROTEIN TRACE (NEGATIVE); URINE RBC 15 /uL (0-23.9); URINE UROBILINOGEN 0.2 mg/dL (0.2-1.0); URINE WBC 1 /uL (0-25.8)
[2020-09-04] MEDS ORDERED: CEFTRIAXONE 1 GM in DEXTROSE 5%-WATER - 100 ML IVPB ONE (17:49)
[2020-09-04] MEDS ORDERED: AZITHROMYCIN IVPB 500 MG in DEXTROSE 5%-WATER - 250 ML IVPB ONE (17:49)
[2020-09-04] MEDS ORDERED: CEFTRIAXONE 1 GM/50 ML BAG ONE (17:54)
[2020-09-04] MEDS ORDERED: AZITHROMYCIN IVPB 500 MG/250 ML BAG IVPB ONE (18:30)
[2020-09-04] MEDS ORDERED: LACTATED RINGERS SOLUTION 1,000 ML/1,000 ML INFUS.BAG IV SCH (22:00)
[2020-09-04 22:05] VITALS: BMI 24.7
[2020-09-04] MEDS: INSULIN SLIDING SCALE (NOVOLOG) 1 VIAL SQ SCH (23:03)
[2020-09-04] MEDS: ATORVASTATIN CA 20 MG TABLET (FP) PO SCH (23:04)
[2020-09-04] MEDS: SODIUM CHLORIDE 500 ML IV SCH (23:06)
[2020-09-05 04:19] LABS: EPI CELLS 2 /uL (0-25.1); HYALINE CASTS 0 /uL (0-3.1); URINE APPEARANCE CLEAR; URINE BACTERIA 28 /uL (0-1359); URINE BILIRUBIN NEGATIVE (NEGATIVE); URINE COLOR YELLOW; URINE GLUCOSE (UA) 3+ (NEGATIVE); URINE KETONE TRACE (NEGATIVE); URINE LEUK ESTERASE NEGATIVE (NEGATIVE); URINE NITRITE NEGATIVE (NEGATIVE); URINE PROTEIN 1+ (NEGATIVE); URINE RBC 63 /uL (0-23.9); URINE UROBILINOGEN 0.2 mg/dL (0.2-1.0); URINE WBC 2 /uL (0-25.8)
[2020-09-05] MEDS: INSULIN SLIDING SCALE (NOVOLOG) 1 VIAL SQ SCH ×3 (06:08→17:13)
[2020-09-05] MEDS ORDERED: cefTRIAXone SODIUM 1 GM VIAL ONE (09:26)
[2020-09-05] MEDS ORDERED: DEXTROSE 5%-WATER - 50 ML IVPB ONE (09:26)
[2020-09-05] MEDS: AZITHROMYCIN IVPB 500 MG/250 ML BAG IVPB SCH (09:36)
[2020-09-05] MEDS: ASPIRIN 81 MG CHEWABLE TABLETS PO SCH (09:37)
[2020-09-05] MEDS: FEBUXOSTAT 40 MG TAB PO SCH (09:37)
[2020-09-05] MEDS: METOPROLOL TARTRATE 50 MG TABLET (FP) PO SCH (09:37)
[2020-09-05] MEDS: CEFTRIAXONE 1 GM in DEXTROSE 5%-WATER - 50 ML IVPB SCH (09:37)
[2020-09-05] MEDS: APIXABAN 5 MG TABLET PO SCH ×2 (09:37→21:19)
[2020-09-05] MEDS ORDERED: CLOPIDOGREL BISULFATE 75 MG TABLET (FP) PO SCH ×2 (10:00)
[2020-09-05] MEDS ORDERED: PNEUMOC 13-VAL CONJ-DIP CRM/PF 0.5 ML DISP.SYRIN IM ONE (10:00)
[2020-09-05] MEDS ORDERED: ACETAMINOPHEN 325 MG TABLET (FP) PO PRN (10:15)
[2020-09-05 12:20] LABS: BASO % 0.2 % (0-2.0); HEMATOCRIT 47.7 % (35.4-49); HEMOGLOBIN 16.2 GM/dL (11.7-16.9); LYMPH % 7.8 % (8-40); MCHC 34.1 g/dl (32.0-35.9); MEAN CELL VOLUME 102.8 fl (80-96); MEAN PLT VOLUME 8.8 fl (7.5-11.1); MONO % 16.2 % (3.8-10.2); NEUT % 75.8 % (42.8-82.8); PLATELET COUNT 173 K/MM3 (134-434); RBC 4.64 M/mm3 (4.00-5.60); RDW 13.8 % (11.9-15.9); WHITE BLOOD COUNT 10.3 K/mm3 (4.0-10.0)
[2020-09-05 12:44] LABS: ALBUMIN 3.5 g/dl (3.4-5.0); BLOOD UREA NITROGEN 24.9 mg/dL (7-18); CALCIUM 9.2 mg/dL (8.5-10.1)
[2020-09-05 12:47] LABS: CREATININE 1.3 mg/dL (0.55-1.3)
[2020-09-05 12:49] LABS: PHOSPHOROUS 2.8 mg/dL (2.5-4.9)
[2020-09-05 12:50] LABS: TOT PROT 6.6 g/dl (6.4-8.2)
[2020-09-05 13:06] LABS: BILIRUBIN,TOTAL 0.8 mg/dL (0.2-1)
[2020-09-05] MEDS: SODIUM CHLORIDE 500 ML IV SCH (14:05)
[2020-09-05] MEDS ORDERED: INSULIN (NOVOLOG) ASPART 100 UNITS/ML 10ML VIAL ONE (18:07)
[2020-09-05] MEDS: ATORVASTATIN CA 20 MG TABLET (FP) PO SCH (21:19)
[2020-09-06] MEDS: SODIUM CHLORIDE 500 ML IV SCH ×2 (01:36→05:00)
[2020-09-06] MEDS: INSULIN SLIDING SCALE (NOVOLOG) 1 VIAL SQ SCH ×4 (06:14→17:41)
[2020-09-06 07:25] LABS: BASO % 0.3 % (0-2.0); EOS % 0.4 % (0-4.5); HEMATOCRIT 44.1 % (35.4-49); LYMPH % 23.7 % (8-40); MCH 34.7 pg (25.7-33.7); MEAN CELL VOLUME 102.1 fl (80-96); MEAN PLT VOLUME 8.6 fl (7.5-11.1); MONO % 16.4 % (3.8-10.2); NEUT % 59.2 % (42.8-82.8); PLATELET COUNT 145 K/MM3 (134-434); RBC 4.32 M/mm3 (4.00-5.60); RDW 13.7 % (11.9-15.9); WHITE BLOOD COUNT 6.1 K/mm3 (4.0-10.0)
[2020-09-06 07:58] LABS: POTASSIUM 3.9 mmol/L (3.5-5.1)
[2020-09-06 08:01] LABS: CALCIUM 8.4 mg/dL (8.5-10.1)
[2020-09-06 08:03] LABS: BLOOD UREA NITROGEN 23.6 mg/dL (7-18)
[2020-09-06 08:06] LABS: BILIRUBIN,TOTAL 0.5 mg/dL (0.2-1); MAGNESIUM 1.8 mg/dL (1.8-2.4)
[2020-09-06 08:14] LABS: CREATININE 1.1 mg/dL (0.55-1.3); TOT PROT 5.5 g/dl (6.4-8.2)
[2020-09-06] MEDS ORDERED: cefTRIAXone SODIUM 1 GM VIAL ONE (09:16)
[2020-09-06] MEDS ORDERED: DEXTROSE 5%-WATER - 50 ML IVPB ONE (09:17)
[2020-09-06] MEDS: METOPROLOL TARTRATE 50 MG TABLET (FP) PO SCH (09:48)
[2020-09-06] MEDS: ASPIRIN 81 MG CHEWABLE TABLETS PO SCH (09:48)
[2020-09-06] MEDS: APIXABAN 5 MG TABLET PO SCH ×2 (09:48→21:17)
[2020-09-06] MEDS: CEFTRIAXONE 1 GM in DEXTROSE 5%-WATER - 50 ML IVPB SCH (09:49)
[2020-09-06] MEDS: AZITHROMYCIN IVPB 500 MG/250 ML BAG IVPB SCH ×2 (09:49→11:18)
[2020-09-06] MEDS: FEBUXOSTAT 40 MG TAB PO SCH (09:49)
[2020-09-06] MEDS: ATORVASTATIN CA 20 MG TABLET (FP) PO SCH (21:17)
[2020-09-07] MEDS: INSULIN SLIDING SCALE (NOVOLOG) 1 VIAL SQ SCH (06:02)
[2020-09-07] MEDS ORDERED: cefTRIAXone SODIUM 1 GM VIAL ONE (08:41)
[2020-09-07] MEDS ORDERED: DEXTROSE 5%-WATER - 50 ML IVPB ONE (08:42)
[2020-09-07 08:55] VITALS: BP 134/67; PULSE 65; TEMP 98.1
[2020-09-07] MEDS: CEFTRIAXONE 1 GM in DEXTROSE 5%-WATER - 50 ML IVPB SCH (08:59)
[2020-09-07] MEDS: APIXABAN 5 MG TABLET PO SCH (09:21)
[2020-09-07] MEDS: METOPROLOL TARTRATE 50 MG TABLET (FP) PO SCH (09:21)
[2020-09-07] MEDS: ASPIRIN 81 MG CHEWABLE TABLETS PO SCH (09:21)
[2020-09-07] MEDS: FEBUXOSTAT 40 MG TAB PO SCH (09:22)
[2020-09-07] MEDS: AZITHROMYCIN IVPB 500 MG/250 ML BAG IVPB SCH (10:00)
== END 2020-09-07 11:36 | disposition home health service (06) | DRG 871 ==
LOC: JER 15:02 → JERBED 17:44 → J7W 21:01
PROVIDERS: ADMIT Internal Medicine; ATTEND Family Medicine
DX: A41.89 Other specified sepsis (principal); J18.9 Pneumonia, unspecified organism; E87.2 Acidosis; N13.30 Unspecified hydronephrosis; N17.9 Acute kidney failure, unspecified; Z68.24 Body mass index [BMI] 24.0-24.9, adult; R62.7 Adult failure to thrive; I25.10 Atherosclerotic heart disease of native coronary artery without angina pectoris; E78.5 Hyperlipidemia, unspecified; E66.9 Obesity, unspecified; I25.2 Old myocardial infarction; R41.82 Altered mental status, unspecified; R50.9 Fever, unspecified; I12.9 Hypertensive chronic kidney disease with stage 1 through stage 4 chronic kidney disease, or unspecified chronic kidney disease; N18.30 Chronic kidney disease, stage 3 unspecified; E11.22 Type 2 diabetes mellitus with diabetic chronic kidney disease; Z95.5 Presence of coronary angioplasty implant and graft; Z86.73 Personal history of transient ischemic attack (TIA), and cerebral infarction without residual deficits
CPT/HCPCS: 36415; 70450-TC; 71045-TC-FY; 74176-TC; 76775-TC; 80053; 81003; 82550; 82553; 82962; 83036; 83605; 83735; 84100; 84443; 84484; 85025; 85610; 85730; 86769; 87040; 87086; 87804; 87899; 93005; 93010; 97116-GP; 97161-GP; 99285-25; C9803; U0003

== ENCOUNTER 2023-04-14 10:30 | Emergency (ER) | payer OTHER, BC ==
[2023-04-14 10:51] VITALS: RESP 18; BMI 28.2
[2023-04-14] MEDS ORDERED: ACETAMINOPHEN 1000 MG/100 ML BAG IVPB ONE (12:22)
[2023-04-14 12:28] LABS: BASO % 0.2 % (0-2.0); EOS % 0.2 % (0-4.5); HEMATOCRIT 46.3 % (35.4-49); HEMOGLOBIN 15.6 GM/dL (11.7-16.9); LYMPH % 10.1 % (8-40); MCH 35.6 pg (25.7-33.7); MCHC 33.6 g/dl (32.0-35.9); MEAN CELL VOLUME 106.1 fl (80-96); MEAN PLT VOLUME 7.9 fl (7.5-11.1); NEUT % 76.5 % (42.8-82.8); PLATELET COUNT 175 10^3/uL (134-434); RBC 4.37 M/mm3 (4.00-5.60); RDW 13.5 % (11.9-15.9); WHITE BLOOD COUNT 8.1 K/mm3 (4.0-10.0)
[2023-04-14] MEDS ORDERED: ACETAMINOPHEN INJECTION 100 ML IVPB ONE (12:31)
[2023-04-14 12:43] LABS: ACTIVATED PTT 34.9 SECONDS (25.2-36.5); INR 1.31 (0.83-1.09); PROTHROMBIN TIME (PATIENT) 15.2 SEC (9.7-13.0)
[2023-04-14 12:46] LABS: POTASSIUM 4.7 mmol/L (3.5-5.1)
[2023-04-14 12:48] LABS: ALBUMIN 3.7 g/dl (3.4-5.0); BLOOD UREA NITROGEN 18.8 mg/dL (7-18); CALCIUM 9.3 mg/dL (8.5-10.1)
[2023-04-14 12:52] LABS: CREATININE 1.2 mg/dL (0.55-1.3)
[2023-04-14 12:53] LABS: BILIRUBIN,TOTAL 1.7 mg/dL (0.2-1); TOT PROT 6.9 g/dl (6.4-8.2)
[2023-04-14 13:24] LABS: ANISOCYTOSIS 1+; MACROCYTOSIS 2+
[2023-04-14 13:45] LABS: EPI CELLS 2 /uL (0-25.1); HYALINE CASTS 0 /uL (0-3.1); PH,URINE 5.5 (5.0-8.0); URINE APPEARANCE CLEAR; URINE BACTERIA 0 /uL (0-1359); URINE BILIRUBIN NEGATIVE (NEGATIVE); URINE COLOR YELLOW; URINE GLUCOSE (UA) NEGATIVE (NEGATIVE); URINE KETONE 1+ (NEGATIVE); URINE LEUK ESTERASE NEGATIVE (NEGATIVE); URINE NITRITE NEGATIVE (NEGATIVE); URINE PROTEIN 3+ (NEGATIVE); URINE RBC 201 /uL (0-23.9); URINE UROBILINOGEN 0.2 mg/dL (0.2-1.0); URINE WBC 4 /uL (0-25.8)
[2023-04-14 15:24] VITALS: BP 147/85; PULSE 80; TEMP 97.8
== END 2023-04-14 17:56 | disposition home or self-care (01) ==
LOC: JER 10:30
PROC: 3E033NZ Introduction of Analgesics, Hypnotics, Sedatives into Peripheral Vein, Percutaneous Approach (ICD-10-PCS; principal; 2023-04-14)
DX: M54.6 Pain in thoracic spine (principal); R10.33 Periumbilical pain; M25.552 Pain in left hip; R60.0 Localized edema; S32.019A Unspecified fracture of first lumbar vertebra, initial encounter for closed fracture; W19.XXXA Unspecified fall, initial encounter
CPT/HCPCS: 36415; 72131-TC; 72170-TC-FY; 73521-TC-FY; 73630-TC-LT; 74177-TC; 80053; 81003; 85025; 85610; 85730; 99285-25; Q9967

== ENCOUNTER 2023-04-19 16:33 | Inpatient (IN) | payer OTHER, BC ==
[2023-04-19 16:40] VITALS: RESP 18
[2023-04-19] MEDS ORDERED: SODIUM PHOSPHATE/NA BIPHOS 133 ML ENEMA PR ONE (17:23)
[2023-04-19] MEDS ORDERED: MAGNESIUM CITRATE 300 ML BOTTLE PO ONE (17:23)
[2023-04-19] MEDS ORDERED: MAGNESIUM CITRATE 300 ML BOTTLE ONE (17:31)
[2023-04-19 17:39] LABS: EPI CELLS 1 /uL (0-25.1); HYALINE CASTS 0 /uL (0-3.1); URINE APPEARANCE CLEAR; URINE BACTERIA 0 /uL (0-1359); URINE BILIRUBIN NEGATIVE (NEGATIVE); URINE COLOR YELLOW; URINE GLUCOSE (UA) NEGATIVE (NEGATIVE); URINE KETONE NEGATIVE (NEGATIVE); URINE LEUK ESTERASE NEGATIVE (NEGATIVE); URINE NITRITE NEGATIVE (NEGATIVE); URINE PROTEIN NEGATIVE (NEGATIVE); URINE RBC 45 /uL (0-23.9); URINE WBC 2 /uL (0-25.8)
[2023-04-19 19:42] LABS: BASO % 0.2 % (0-2.0); EOS % 0.8 % (0-4.5); HEMATOCRIT 45.1 % (35.4-49); LYMPH % 23.8 % (8-40); MCH 36.6 pg (25.7-33.7); MCHC 35.5 g/dl (32.0-35.9); MEAN CELL VOLUME 103.1 fl (80-96); MEAN PLT VOLUME 7.2 fl (7.5-11.1); MONO % 13.9 % (3.8-10.2); NEUT % 61.3 % (42.8-82.8); PLATELET COUNT 231 10^3/uL (134-434); RBC 4.37 M/mm3 (4.00-5.60); RDW 13.6 % (11.9-15.9); WHITE BLOOD COUNT 7.9 K/mm3 (4.0-10.0)
[2023-04-19 20:14] LABS: POTASSIUM 4.2 mmol/L (3.5-5.1)
[2023-04-19 20:16] LABS: CALCIUM 9.1 mg/dL (8.5-10.1)
[2023-04-19 20:17] LABS: ALBUMIN 3.4 g/dl (3.4-5.0); BLOOD UREA NITROGEN 19.9 mg/dL (7-18); MAGNESIUM 1.8 mg/dL (1.8-2.4)
[2023-04-19 20:20] LABS: CREATININE 1.2 mg/dL (0.55-1.3)
[2023-04-19 20:21] LABS: TOT PROT 6.5 g/dl (6.4-8.2)
[2023-04-19 20:22] LABS: BILIRUBIN,TOTAL 1.1 mg/dL (0.2-1)
[2023-04-20] MEDS ORDERED: BISACODYL 5 MG TABLET.DR (FP) PO ONE (00:11)
[2023-04-20] MEDS ORDERED: DOCUSATE SODIUM 100 MG CAPSULE (FP) PO ONE ×2 (00:14→01:00)
[2023-04-20 05:16] VITALS: BMI 25.4
[2023-04-20] MEDS: INSULIN SLIDING SCALE (NOVOLOG) 1 VIAL SQ SCH ×4 (07:11→22:04)
[2023-04-20] MEDS: FUROSEMIDE 20 MG TABLET (FP) PO SCH (11:22)
[2023-04-20] MEDS: SPIRONOLACTONE 25 MG TABLET PO SCH (11:22)
[2023-04-20] MEDS: APIXABAN 5 MG TABLET PO SCH ×2 (11:22→21:59)
[2023-04-20 11:29] LABS: BASO % 0.3 % (0-2.0); EOS % 0.5 % (0-4.5); HEMATOCRIT 42.8 % (35.4-49); HEMOGLOBIN 15.2 GM/dL (11.7-16.9); LYMPH % 16.1 % (8-40); MCH 36.7 pg (25.7-33.7); MCHC 35.5 g/dl (32.0-35.9); MEAN CELL VOLUME 103.3 fl (80-96); MEAN PLT VOLUME 7.6 fl (7.5-11.1); MONO % 13.8 % (3.8-10.2); NEUT % 69.3 % (42.8-82.8); PLATELET COUNT 218 10^3/uL (134-434); RBC 4.14 M/mm3 (4.00-5.60); RDW 13.8 % (11.9-15.9); WHITE BLOOD COUNT 6.5 K/mm3 (4.0-10.0)
[2023-04-20 11:49] LABS: POTASSIUM 4.2 mmol/L (3.5-5.1)
[2023-04-20 12:23] LABS: CALCIUM 8.8 mg/dL (8.5-10.1)
[2023-04-20 12:24] LABS: BLOOD UREA NITROGEN 16.5 mg/dL (7-18); MAGNESIUM 2.2 mg/dL (1.8-2.4)
[2023-04-20 12:27] LABS: PHOSPHOROUS 2.7 mg/dL (2.5-4.9)
[2023-04-20] MEDS: ALLOPURINOL 300 MG TABLET (FP) PO SCH (14:10)
[2023-04-20] MEDS: RAMIPRIL 5 MG CAPSULE PO SCH (14:11)
[2023-04-20 14:20] LABS: POTASSIUM 4.3 mmol/L (3.5-5.1)
[2023-04-20 14:21] LABS: CALCIUM 8.8 mg/dL (8.5-10.1)
[2023-04-20 14:22] LABS: BLOOD UREA NITROGEN 18.4 mg/dL (7-18)
[2023-04-20 14:25] LABS: CREATININE 1.2 mg/dL (0.55-1.3)
[2023-04-20] MEDS: ATORVASTATIN CA 10 MG TABLET (FP) PO SCH (21:59)
[2023-04-20] MEDS: POLYETHYLENE GLYCOL (HEALTHYLAX) 3350 17 GM PACKET PO SCH (22:05)
[2023-04-21] MEDS ORDERED: ACETAMINOPHEN 325 MG TABLET (FP) PO PRN (01:25)
[2023-04-21] MEDS: INSULIN SLIDING SCALE (NOVOLOG) 1 VIAL SQ SCH ×4 (06:07→21:56)
[2023-04-21] MEDS: FUROSEMIDE 20 MG TABLET (FP) PO SCH (09:39)
[2023-04-21] MEDS: POLYETHYLENE GLYCOL (HEALTHYLAX) 3350 17 GM PACKET PO SCH ×2 (09:40→21:56)
[2023-04-21] MEDS: SPIRONOLACTONE 25 MG TABLET PO SCH (09:41)
[2023-04-21] MEDS: APIXABAN 5 MG TABLET PO SCH ×2 (09:41→21:56)
[2023-04-21] MEDS: RAMIPRIL 5 MG CAPSULE PO SCH (09:42)
[2023-04-21] MEDS: ALLOPURINOL 300 MG TABLET (FP) PO SCH (09:42)
[2023-04-21] MEDS ORDERED: INSULIN (NOVOLOG) ASPART 100 UNITS/ML 10ML VIAL ONE (12:26)
[2023-04-21] MEDS: ATORVASTATIN CA 10 MG TABLET (FP) PO SCH (21:56)
[2023-04-22] MEDS: INSULIN SLIDING SCALE (NOVOLOG) 1 VIAL SQ SCH ×4 (06:17→21:38)
[2023-04-22] MEDS: ALLOPURINOL 300 MG TABLET (FP) PO SCH (09:15)
[2023-04-22] MEDS: SPIRONOLACTONE 25 MG TABLET PO SCH (09:15)
[2023-04-22] MEDS: FUROSEMIDE 20 MG TABLET (FP) PO SCH (09:15)
[2023-04-22] MEDS: APIXABAN 5 MG TABLET PO SCH ×2 (09:15→21:36)
[2023-04-22] MEDS: RAMIPRIL 5 MG CAPSULE PO SCH (09:15)
[2023-04-22] MEDS: POLYETHYLENE GLYCOL (HEALTHYLAX) 3350 17 GM PACKET PO SCH ×2 (09:15→21:36)
[2023-04-22 09:57] LABS: HEMATOCRIT 47.5 % (35.4-49); MCHC 33.7 g/dl (32.0-35.9); MEAN CELL VOLUME 106.8 fl (80-96); MEAN PLT VOLUME 7.3 fl (7.5-11.1); PLATELET COUNT 262 10^3/uL (134-434); POTASSIUM 4.1 mmol/L (3.5-5.1); RBC 4.45 M/mm3 (4.00-5.60); RDW 13.4 % (11.9-15.9); WHITE BLOOD COUNT 7.4 K/mm3 (4.0-10.0)
[2023-04-22 10:00] LABS: BLOOD UREA NITROGEN 17.1 mg/dL (7-18)
[2023-04-22 10:03] LABS: CREATININE 1.1 mg/dL (0.55-1.3)
[2023-04-22] MEDS ORDERED: GLYCERIN 1 RECTAL SUPPOSITORY, ADULT RC PRN (10:52)
[2023-04-22] MEDS: CALCIUM 250MG/VIT-D 125 UNITS 1 COMBO TABLET PO SCH (12:11)
[2023-04-22] MEDS: CALCITONIN - SALMON SYNTHETIC 200 UNITS/SPRAY NS SCH (12:12)
[2023-04-22] MEDS: ATORVASTATIN CA 20 MG TABLET (FP) PO SCH (21:36)
[2023-04-23] MEDS: INSULIN SLIDING SCALE (NOVOLOG) 1 VIAL SQ SCH ×4 (06:20→22:45)
[2023-04-23] MEDS ORDERED: GLYCERIN 1 RECTAL SUPPOSITORY, ADULT RC ONE (06:58)
[2023-04-23] MEDS: RAMIPRIL 5 MG CAPSULE PO SCH (09:24)
[2023-04-23] MEDS: APIXABAN 5 MG TABLET PO SCH ×2 (09:25→21:50)
[2023-04-23] MEDS: ALLOPURINOL 300 MG TABLET (FP) PO SCH (09:25)
[2023-04-23] MEDS: POLYETHYLENE GLYCOL (HEALTHYLAX) 3350 17 GM PACKET PO SCH ×2 (09:25→21:50)
[2023-04-23] MEDS: FUROSEMIDE 20 MG TABLET (FP) PO SCH (09:25)
[2023-04-23] MEDS: SPIRONOLACTONE 25 MG TABLET PO SCH (09:25)
[2023-04-23] MEDS: CALCIUM 250MG/VIT-D 125 UNITS 1 COMBO TABLET PO SCH (09:26)
[2023-04-23] MEDS: CALCITONIN - SALMON SYNTHETIC 200 UNITS/SPRAY NS SCH (09:27)
[2023-04-23] MEDS ORDERED: MAGNESIUM CITRATE 300 ML BOTTLE PO ONE (11:00)
[2023-04-23] MEDS: PANTOPRAZOLE 40 MG TABLET PO SCH (14:15)
[2023-04-23] MEDS: SODIUM PHOSPHATE/NA BIPHOS 133 ML ENEMA RC SCH ×2 (15:29→18:43)
[2023-04-23] MEDS ORDERED: INSULIN (NOVOLOG) ASPART 100 UNITS/ML 10ML VIAL ONE (18:12)
[2023-04-23] MEDS: ATORVASTATIN CA 20 MG TABLET (FP) PO SCH (21:50)
[2023-04-24] MEDS: INSULIN SLIDING SCALE (NOVOLOG) 1 VIAL SQ SCH (06:41)
[2023-04-24] MEDS ORDERED: LEVOTHYROXINE NA 25 MCG TABLET (FP) PO SCH (07:00)
[2023-04-24] MEDS: FUROSEMIDE 20 MG TABLET (FP) PO SCH (10:27)
[2023-04-24] MEDS: APIXABAN 5 MG TABLET PO SCH (10:27)
[2023-04-24] MEDS: POLYETHYLENE GLYCOL (HEALTHYLAX) 3350 17 GM PACKET PO SCH (10:27)
[2023-04-24] MEDS: SPIRONOLACTONE 25 MG TABLET PO SCH (10:27)
[2023-04-24] MEDS: PANTOPRAZOLE 40 MG TABLET PO SCH (10:28)
[2023-04-24] MEDS: CALCIUM 250MG/VIT-D 125 UNITS 1 COMBO TABLET PO SCH (10:28)
[2023-04-24] MEDS: RAMIPRIL 5 MG CAPSULE PO SCH (10:29)
[2023-04-24] MEDS: ALLOPURINOL 300 MG TABLET (FP) PO SCH (10:29)
[2023-04-24 11:04] LABS: HEMATOCRIT 47.5 % (35.4-49); HEMOGLOBIN 16.5 GM/dL (11.7-16.9); MCH 36.6 pg (25.7-33.7); MCHC 34.8 g/dl (32.0-35.9); MEAN CELL VOLUME 105.1 fl (80-96); MEAN PLT VOLUME 7.4 fl (7.5-11.1); PLATELET COUNT 307 10^3/uL (134-434); RBC 4.52 M/mm3 (4.00-5.60); RDW 13.8 % (11.9-15.9)
[2023-04-24] MEDS: CALCITONIN - SALMON SYNTHETIC 200 UNITS/SPRAY NS SCH (11:08)
[2023-04-24 11:22] LABS: POTASSIUM 4.7 mmol/L (3.5-5.1)
[2023-04-24 11:26] LABS: CALCIUM 9.3 mg/dL (8.5-10.1)
[2023-04-24 11:27] LABS: ALBUMIN 3.6 g/dl (3.4-5.0); BLOOD UREA NITROGEN 22.7 mg/dL (7-18); MAGNESIUM 2.4 mg/dL (1.8-2.4)
[2023-04-24 11:30] LABS: CREATININE 1.3 mg/dL (0.55-1.3)
[2023-04-24 11:32] LABS: BILIRUBIN,TOTAL 1.1 mg/dL (0.2-1); TOT PROT 6.8 g/dl (6.4-8.2)
[2023-04-24] MEDS ORDERED: LIPASE/PROTEASE/AMYLASE 36,000 UNIT CAPSULE PO SCH (12:00)
[2023-04-24 12:30] VITALS: BP 121/73; PULSE 77; TEMP 97.8
[2023-04-24] MEDS ORDERED: RIFAXIMIN 550 MG TABLET PO SCH (14:00)
== END 2023-04-24 11:42 | disposition home health service (06) | DRG 552 ==
LOC: JER 16:33 → JERBED 23:58 → J6S 04-20 02:39 → OBSVTOIN 04-23 09:26
PROVIDERS: ADMIT Internal Medicine; ATTEND Family Medicine
DX: S32.019A Unspecified fracture of first lumbar vertebra, initial encounter for closed fracture (principal); E87.1 Hypo-osmolality and hyponatremia; J98.11 Atelectasis; I69.320 Aphasia following cerebral infarction; K59.00 Constipation, unspecified; I12.9 Hypertensive chronic kidney disease with stage 1 through stage 4 chronic kidney disease, or unspecified chronic kidney disease; E11.22 Type 2 diabetes mellitus with diabetic chronic kidney disease; N18.9 Chronic kidney disease, unspecified; R09.02 Hypoxemia; Z79.84 Long term (current) use of oral hypoglycemic drugs; I25.10 Atherosclerotic heart disease of native coronary artery without angina pectoris; E78.5 Hyperlipidemia, unspecified; W19.XXXA Unspecified fall, initial encounter; Y93.89 Activity, other specified; Y92.9 Unspecified place or not applicable; Y99.8 Other external cause status
CPT/HCPCS: 36415; 71046-TC-FY; 72148-TC; 74018-TC-FY; 74019-TC-FY; 74021-TC-FY; 74177-TC; 80048; 80053; 81003; 82962; 83735; 83930; 83935; 84100; 84300; 84443; 85025; 85027; 87086; 94010; 97116-GP; 99285-25; G0378